=== PATIENT | male | born 1995 | race Caucasian/White ===

== ENCOUNTER 2019-08-02 12:06 | Emergency (ER) | payer SELFPAY ==
[~2019-08-02] VITALS: Ht 188 cm; Wt 147.4 kg
[~2019-08-02 12:06] MED LIST: IBUPROFEN200 MG PO; IBUPROFEN800 MG PO
[2019-08-02] MEDS ORDERED: KEPPRA750 MG PO (13:58)
== END 2019-08-02 15:26 | disposition home or self-care (01) ==
LOC: ED 12:06
DX: R56.9 Unspecified convulsions (principal); Z87.891 Personal history of nicotine dependence
CPT/HCPCS: 70450; 80053; 85025; 96361; 96374; 96375; 99284-25; G0480; J1200; J1953; J2405; J2765; J7030

== ENCOUNTER 2021-02-13 08:56 | Emergency (ER) | payer OTHER ==
[~2021-02-13] VITALS: Ht 188 cm; Wt 142.9 kg
[~2021-02-13 08:56] MED LIST changes: +KEPPRA750 MG PO
[2021-02-13] MEDS ORDERED: DILANTIN100 MG PO (11:38)
== END 2021-02-13 11:51 | disposition home or self-care (01) ==
LOC: ED 08:56
DX: R56.9 Unspecified convulsions (principal); Z87.891 Personal history of nicotine dependence
CPT/HCPCS: 96365; 96375; 99284-25; J2765; J7030; Q2009

== ENCOUNTER 2021-03-09 12:17 | Emergency (ER) | payer OTHER ==
[~2021-03-09] VITALS: Ht 188 cm; Wt 142.9 kg
[~2021-03-09 12:17] MED LIST changes: +DILANTIN100 MG PO
--- OUTSIDE RECORDS SUMMARY | 2021-03-09 12:24 | XMS ---
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 Araceli has no Care Guidelines for this patient. Andrei VISIT COUNT (12 MO.) 2 [facility] H. TOTAL 2 NOTE: Visits indicate total known visits. ED/[facility] VISIT TRACKING (12 MO.) 03/09/2021 12:18 [facility] [place] TYPE: Emergency COMPLAINT: - SEZIURE 02/13/2021 08:57 [facility] [place] TYPE: Emergency COMPLAINT: - SEIZURE DIAGNOSES: - Unspecified convulsions - Personal history of nicotine dependence INPATIENT VISIT TRACKING (12 MO.) No inpatient visits to display in this time frame [email or web address]
[2021-03-09] MEDS ORDERED: PHENYTOIN SODI100 MG PO (14:10)
== END 2021-03-09 14:56 | disposition home or self-care (01) ==
LOC: ED 12:17
DX: G40.909 Epilepsy, unspecified, not intractable, without status epilepticus (principal); Z87.891 Personal history of nicotine dependence; Z79.899 Other long term (current) drug therapy
CPT/HCPCS: 80048; 80185; 85025; 96365; 96375; 99284-25; J1790; J2405; J7030; Q2009

== ENCOUNTER 2021-12-15 23:31 | Emergency (ER) | payer OTHER ==
[~2021-12-15] VITALS: Ht 188 cm; Wt 148.0 kg
[~2021-12-15 23:31] MED LIST changes: +PHENYTOIN SODI100 MG PO
--- OUTSIDE RECORDS SUMMARY | 2021-12-15 23:34 | XMS ---
PreManage Notification: ESHA DE JESUS Security Coroner Technician Events No recent Security Events currently on file CRITERIA MET - [facility] - Has Care Guidelines - [facility] - 2 Visits in 30 Days CARE PROVIDERS KEN CABRERA [facility] 03/10/2021-Current PHONE: Unknown Araceli has no Care Guidelines for this patient. Care History Medical/Surgical 03/10/2021 [facility] - Patient is currently established with [facility]. If patient is seen in the ED during business hours. Please contact CHWs at [facility]. Care Recommendation: If this patient has had 5 or more Emergency Department visits in the last 12 months.\T\nbsp;Patient will require education on the scope and purpose of the ED as an acute care provider not a Primary Care Provider and should not be utilized for chronic conditions.\T\nbsp; These are guidelines and the provider should exercise clinical judgment when providing care. E.D. VISIT COUNT (12 MO.) 1 [facility] 3 [facility]. TOTAL 4 NOTE: Visits indicate total known visits. ED/UCC VISIT TRACKING (12 MO.) 12/15/2021 23:32 [facility] [place] TYPE: Emergency COMPLAINT: - DENTAL PAIN 12/09/2021 17:12 [facility] [place] TYPE: Emergency COMPLAINT: - SEIZURE DIAGNOSES: - SEIZURE 03/09/2021 12:18 [facility] [place] TYPE: Emergency COMPLAINT: - SEZIURE DIAGNOSES: - Unspecified convulsions - Personal history of nicotine dependence - Other shelter (current) drug therapy - Epilepsy, unspecified, not intractable, without status epilepticus 02/13/2021 08:57 [facility] [place] TYPE: Emergency COMPLAINT: - SEIZURE DIAGNOSES: - Unspecified convulsions - Personal history of nicotine dependence INPATIENT VISIT TRACKING (12 MO.) No inpatient visits to display in this time frame [email or web address]
[2021-12-16] MEDS ORDERED: HYDROCODON-ACE1 EA10 PO (00:06)
[2021-12-16] MEDS ORDERED: AMOXICILLIN500 MG PO (00:06)
== END 2021-12-16 00:16 | disposition home or self-care (01) ==
LOC: ED 23:31
DX: K04.7 Periapical abscess without sinus (principal); Z87.891 Personal history of nicotine dependence
CPT/HCPCS: A9270

== ENCOUNTER 2022-04-12 12:11 | Emergency (ER) | payer OTHER ==
[~2022-04-12] VITALS: Ht 188 cm; Wt 141.2 kg
[~2022-04-12 12:11] MED LIST changes: +AMOXICILLIN500 MG PO; +HYDROCODON-ACE1 EA10 PO
--- OUTSIDE RECORDS SUMMARY | 2022-04-12 12:13 | XMS ---
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 Care History Medical/Surgical 03/10/2021 [facility] - [facility] [...] care. E.D. VISIT COUNT (12 MO.) [address] [facility] [address] [facility] [address] [facility] TOTAL 3 NOTE: Visits indicate total known visits. ED/UCC VISIT TRACKING (12 MO.) 04/12/2022 12:12 [facility] [place] TYPE: Emergency COMPLAINT: - SEIZURE 12/15/2021 23:32 [facility] [place] [facility] [place] TYPE: Emergency COMPLAINT: - DENTAL PAIN DIAGNOSES: - Periapical abscess without sinus - Other specified disorders of teeth and supporting structures - Personal history of nicotine dependence 12/09/2021 17:12 [facility] [place] TYPE: Emergency COMPLAINT: - SEIZURE DIAGNOSES: - SEIZURE INPATIENT VISIT TRACKING (12 MO.) No inpatient visits to display in this time frame [email or web address]
[2022-04-12] MEDS ORDERED: PHENYTOIN SODI300 MG PO (12:38)
[2022-04-12] MEDS ORDERED: KEPPRA750 MG PO (16:47)
--- NOTE | 2022-04-13 21:41 | EKG ---
[facility] [address] [facility] [place] [address] Signed Normal sinus rhythm Normal ECG No previous ECGs available Confirmed by Jose Dniero MD () on 04/13/2022 9:41:32 PM Electronically Signed By: JOSE DINERO MD 04/13/222140 PATIENT NAME: ESHA DE JESUS [place] Electrocardiogram DATE OF : [birth year] PHYSICIAN: JOSE DINERO MD REPORT #: [id number] REPORT IS CONFIDENTIAL AND NOT TO BE RELEASED WITHOUT AUTHORIZATION
== END 2022-04-12 17:02 | disposition home or self-care (01) ==
LOC: ED 12:11
DX: G40.909 Epilepsy, unspecified, not intractable, without status epilepticus (principal); Z87.891 Personal history of nicotine dependence; Z79.899 Other long term (current) drug therapy
CPT/HCPCS: 36415; 70450; 71045; 80053; 80185; 85025; 93005; 93010; 96374; 99285-25; J1953

== ENCOUNTER 2022-05-07 19:30 | Emergency (ER) | payer OTHER ==
[~2022-05-07] VITALS: Ht 188 cm; Wt 141.2 kg
[~2022-05-07 19:30] MED LIST changes: +PHENYTOIN SODI300 MG PO
--- OUTSIDE RECORDS SUMMARY | 2022-05-07 19:32 | XMS ---
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 PHONE: [phone] KEN CABRERA Family Medicine 03/10/2021-Current PHONE: [phone] Araceli has no Care Guidelines for this patient. Care History Medical/Surgical 03/10/2021 [facility] - Patient is currently established with [facility]. If patient is seen in the ED during business hours. Please contact CHWs at [facility]. Care Recommendation: If this patient has had [...] care. E.D. VISIT COUNT (12 MO.) 1 [facility] [address] [facility] [address] [facility] TOTAL 4 NOTE: Visits indicate total known visits. ED/UCC VISIT TRACKING (12 MO.) 05/07/2022 19:30 [facility] [place] TYPE: Emergency COMPLAINT: - SEIZURE 04/12/2022 12:12 [facility] [place] TYPE: Emergency COMPLAINT: - SEIZURE DIAGNOSES: - Epilepsy, unspecified, not intractable, without status epilepticus - Other half-way (current) drug therapy - Personal history of nicotine dependence 12/15/2021 23:32 [facility] [place] TYPE: Emergency COMPLAINT: - DENTAL PAIN DIAGNOSES: - Personal history of nicotine dependence - Periapical abscess without sinus - Other specified disorders of teeth and supporting structures 12/09/2021 17:12 [facility] [place] TYPE: Emergency COMPLAINT: - SEIZURE DIAGNOSES: - SEIZURE INPATIENT VISIT TRACKING (12 MO.) No inpatient visits to display in this time frame [email or web address]
--- NOTE | 2022-05-11 18:55 | EKG ---
[facility] [address] [facility] [place] [address] Signed Normal sinus rhythm Nonspecific intraventricular conduction delay Borderline ECG When compared with ECG of 12-APR-2022 12:28, No significant change was found Confirmed by Jose Dinero MD () on 05/11/2022 6:55:09 PM Electronically Signed By: JOSE DINERO MD 05/11/22 1855 PATIENT NAME: ESHA DE JESUS [place] Electrocardiogram DATE OF : [birth year] PHYSICIAN: JOSE DINERO MD REPORT #: [id number] REPORT IS CONFIDENTIAL AND NOT TO BE RELEASED WITHOUT AUTHORIZATION
== END 2022-05-07 21:32 | disposition home or self-care (01) ==
LOC: ED 19:30
DX: G40.909 Epilepsy, unspecified, not intractable, without status epilepticus (principal); Z87.891 Personal history of nicotine dependence; Z79.899 Other long term (current) drug therapy
CPT/HCPCS: 36415; 80053; 81001; 85025; 93005; 93010; 96374; 96375; 99284-25; J1953; J2405; J7121

== ENCOUNTER 2022-06-04 15:53 | Emergency (ER) | payer OTHER ==
--- NOTE | ~2022-06-04 | EKG ---
[facility] [address] [facility] [place], [place] [address] Draft EKG completed, results pending confirmation PATIENT NAME: LIZAESHA [place] Electrocardiogram DATE OF : [birth year] PHYSICIAN: PRELIMINARY REPORT #: [id number] REPORT IS CONFIDENTIAL AND NOT TO BE RELEASED WITHOUT AUTHORIZATION
--- OUTSIDE RECORDS SUMMARY | 2022-06-04 15:56 | XMS ---
PreManage Notification: ESHA RUBI Security Curriculum Manager Events No recent Security Events currently on file CRITERIA MET - [facility] - 2 Visits in 30 Days CARE PROVIDERS There are no care providers on record at this time. Araceli has no Care Guidelines for this patient. Andrei VISIT COUNT (12 MO.) 2 [facility] [place] H. TOTAL 2 NOTE: Visits indicate total known visits. ED/[facility] VISIT TRACKING (12 MO.) 06[facility]22 15[facility] [place] [facility] COMPLAINT: - SEIZURE 05/07/2022 19:26 [facility] [place] TYPE: Emergency COMPLAINT: - SEIZURES INPATIENT VISIT TRACKING (12 MO.) No inpatient visits to display in this time frame [email or web address]
[2022-06-04 17:11] VITALS: BP 125/82
[2022-06-04] MEDS ORDERED: KEPPRA1000 MG PO (17:11)
== END 2022-06-04 17:10 | disposition home or self-care (01) ==
LOC: ED 15:53
DX: G40.909 Epilepsy, unspecified, not intractable, without status epilepticus (principal); Z79.899 Other long term (current) drug therapy
CPT/HCPCS: 36415; 80053; 81001; 83735; 85025; 93005; 93010; 99284-25; G0480

== ENCOUNTER 2022-09-02 20:23 | Emergency (ER) | payer OTHER ==
[~2022-09-02] VITALS: Ht 188 cm; Wt 141.1 kg
--- OUTSIDE RECORDS SUMMARY | ~2022-09-02 | XMS | Continuity of Care Document ---
Demographics + + + | Address | [address] | | | [place] [address] | + + + | Preferred Language | Unknown | + + + | Marital Status | | + + + | Caodaism Affiliation | Unknown | + + + | Race | White | + + + | Ethnic Group | Unknown | + + + Author + + + | Author | [facility] | + + + | Organization | [facility] | + + + | Address | [address] | | | [place] [address] | + + + | Phone | | + + + Care Team Providers + + + + | Care Individual Small Group Instructor Name | Role | Phone | + [...] (no date) | NO ALLERGY | [facility] | (no reaction) | (no severity) | | | INFORMATION ON | Medical Center | | | | | FILE | Hospital | | | + + + + + + | (no date) | NO KNOWN | [facility] | (no reaction) | (no severity) | [...] Cardiopulmonary Services | | | tablet | [facility] | + + + + | 2022-05-27 00:00 | phenytoin 50 mg chewable | [facility] | | | tablet | [facility] | + + + + | 2016-06-04 00:00 | IBUPROFEN | [facility] | + + + + | 2016-06-04 00:00 | IBUPROFEN | [facility] | + + + + | 2019-08-02 00:00 | LEVETIRACETAM | [facility] | + + + + | 2019-08-02 00:00 | LEVETIRACETAM | [facility] | + + + + | 2022-04-12 00:00 | LEVETIRACETAM | [facility] | + + + + | 2022-04-12 00:00 | LEVETIRACETAM | [facility] | + + + + | 2021-12-16 00:00 | AMOXICILLIN | [facility] | + + + + | 2021-12-16 00:00 | IBUPROFEN | [facility] | + + + + | 2022-04-12 00:00 | IBUPROFEN | [facility] | + + + + | 2022-05-07 00:00 | IBUPROFEN | [facility] | + + + + | 2022-06-14 00:00 | IBUPROFEN | [facility] | + + + + | 2022-05-27 00:00 | levetiracetam 250 mg oral | Cardiopulmonary Services | | | tablet | at [facility] | + + + + | 2022-05-27 00:00 | levetiracetam 250 mg oral | [facility] | | | tablet | [facility] | + + + + | 2022-05-08 00:00 | levetiracetam 750 mg oral | [facility] | | | tablet | [facility] | + + + + | 2022-06-09 00:00 | levetiracetam 750 mg oral | Cardiopulmonary Services | | | tablet | at [facility] | + + + + | 2022-06-14 00:00 | LEVETIRACETAM | [facility] | + + + + | 2021-03-09 00:00 | PHENYTOIN SODIUM EXTENDED | [facility] | + + + + | 2022-05-27 00:00 | phenytoin sodium 100 mg | Cardiopulmonary Services | | | extended release oral | [facility] | | | capsule | | + + + + | 2022-05-27 00:00 | phenytoin sodium 100 mg | [facility] | | | extended release oral | [facility] | | | capsule | | + + + + | 2021-02-13 00:00 | PHENYTOIN SODIUM | [facility] | + + + + | 2021-02-13 00:00 | PHENYTOIN SODIUM | [facility] | + + + + | 2022-05-11 00:00 | phenytoin sodium 200 mg | [facility] | | | extended release oral | [facility] | | | capsule | | + + + + | 2022-04-12 00:00 | PHENYTOIN SODIUM EXTENDED | [facility] | + + + + | 2022-05-07 00:00 | PHENYTOIN SODIUM EXTENDED | [facility] | + + + + | 2022-06-14 00:00 | PHENYTOIN SODIUM EXTENDED | [facility] | + + + + | 2021-12-16 00:00 | HYDROCODONE | [facility] | | | BIT/ACETAMINOPHEN | | + + + + Problems + + + + | date | description | facility | + + + + | 2016-06-04 00:00 | Upper respiratory tract | [facility] | | | infection | | + + + + | 2016-06-04 00:00 | Upper respiratory tract | [facility] | | | infection | | + + + + | 2016-06-04 00:00 | Headache | [facility] | + + + + | 2016-06-04 00:00 | Headache | [facility] | + + + + | 2021-02-13 00:00 | Seizure | [facility] | + + + + | 2021-02-13 00:00 | Seizure | [facility] | + + + + | 2021-03-09 00:00 | Seizure disorder | [facility] | + + + + | 2021-03-09 00:00 | Seizure disorder | [facility] | + + + + | 2021-12-16 00:00 | Dental abscess | [facility] | + + + + | 2021-12-16 00:00 | Dental abscess | [facility] | + + + + | 2022-05-27 10:12:35 | 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, | [facility]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, 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 | | + + + + | 2022-06-04 00:00 | Recurrent seizures | [facility] | + + + + | 2022-07-06 08:26:40 | 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, | [facility]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, 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 | | + + + + | 2022-07-06 15:54:41 | 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, | [facility]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, 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 | | + + + + | 2022-07-06 15:54:41 | Epilepsy, unspecified, | [facility] | | | intractable, without status | [facility] | | | epilepticus | | + + + + Procedures + + + + | date | description | facility | + + + + | 2022-07-06 00:00 | TO HR COORDINATOR | Cardiopulmonary Services | | | | at [facility] | + + + + Results/Labs [...] (missing) | (missing) | | (unavailable | :07 | [facility] | | | | | [...] mg/dL | (missing) | | (unavailable | :08 | [facility] | | | | + + + +-------+---------+ + + + | Result panel 18 | + + + + + +------+---------+ + | | 2022-04-12 | [facility] | 13 | mg/dL | (missing) | | (unavailable | 32:08 | [facility] | | | | | [...] 38 | + + + + + +-------+---------+ + | | 2022-05-07 | [facility] | 130 | mg/dL | (missing) | | (unavailable | 19:35:07 | [facility] | | | | + + + +-------+---------+ + + + | Result panel 39 | + + + + + +-----+---------+ + | | 2022-05-07 | [facility] | 9 | mg/dL | (missing) | | (unavailable | 19:35:07 | [facility] | | | | + + + +-----+---------+ + + + | Result panel 40 | + + + + + +--------+---------+ + | | 2022-05-07 | [facility] | 1.10 | mg/dL | (missing) | | (unavailable | 19:35:07 | [facility] | | | | + + + +--------+---------+ + + + | Result panel 41 | + + + + + +------+ [...] 43 | + + + + + +-------+ + + | | 2022-05-07 | [facility] | 141 | (missing) | (missing) | | (unavailable | 19:35:07 | [facility] | | | | + + + +-------+ + + + + | Result panel 44 | + + + + + +-------+ + + | | 2022-05-07 | [facility] | 3.7 | (missing) | (missing) | | (unavailable | 19:35:07 | [facility] | | | | + + + +-------+ + + + + | Result panel 45 | + + + + + +-------+ + + | | 2022-05-07 | [facility] | 104 | (missing) | (missing) | | (unavailable | 19:35:07 | [facility] | | | | + + + +-------+ + + + + | Result panel 46 | + + + + + +------+ [...] 48 | + + + + + +-------+---------+ + | | 2022-05-07 | [facility] | 8.8 | mg/dL | (missing) | | (unavailable | 19:35:07 | [facility] | | | | + + + +-------+---------+ + + + | Result panel 49 [...] 52 | + + + + + +--------+ + + | | 2022-05-07 | [facility] | 1.34 | (missing) | (missing) | | (unavailable | 19:35:07 | [facility] | | | | + + + +--------+ + + + + | Result panel 53 | + + + + + +-------+ + + | | 2022-05-07 | [facility] | 0.4 | (missing) | (missing) | | (unavailable | 19:35:07 | [facility] | | | | + + + +-------+ + + + + | Result panel 54 | + + + + + +------+ + + | | 2022-05-07 | [facility] | 30 | (missing) | (missing) | | (unavailable | 19:35:07 | [facility] | | | | + + + +------+ + + + + | Result panel 55 [...] 56 | + + + + + +------+ [...] 58 | + + + + + +--------+ + + | | 2022-05-07 | [facility] | 4.86 | (missing) | (missing) | | (unavailable | 19:35:07 | [facility] | | | | + + + +--------+ + + + + | Result panel 59 | + + + + + +--------+ + + | | 2022-05-07 | [facility] | 14.6 | (missing) | (missing) | | (unavailable | 19:35:07 | [facility] | | | | + + + +--------+ + + + + | Result panel 60 | + + + + + +--------+ [...] 62 | + + + + + +--------+ + + | | 2022-05-07 | [facility] | 30.1 | (missing) | (missing) | | (unavailable | 19:35:07 | [facility] | | | | + + + +--------+ + + + + | Result panel 63 | + + + + + +--------+ + + | | 2022-05-07 | [facility] | 33.8 | (missing) | (missing) | | (unavailable | 19:35:07 | [facility] | | | | + + + +--------+ + + + + | Result panel 64 | + + + + + +--------+ [...] 67 | + + + + + +--------+ + + | | 2022-05-07 | [facility] | 30.0 | (missing) | (missing) | | (unavailable | 19:35:07 | [facility] | | | | + + + +--------+ + + + + | Result panel 68 | + + + + + +-------+ + + | | 2022-05-07 | [facility] | 8.3 | (missing) | (missing) | | (unavailable | 19:35:07 | [facility] | | | | + + + +-------+ + + + + | Result panel 69 | + + + + + +-------+ + + | | 2022-05-07 | [facility] | 0.4 | (missing) | (missing) | | (unavailable | 19:35:07 | [facility] | | | | + + + +-------+ + + + + | Result panel 70 | + + + + + +-------+ + + | | 2022-05-07 | [facility] | 0.3 | (missing) | (missing) | | (unavailable | 19:35:07 | [facility] | | | | + + + +-------+ + + + + | Result panel 71 | + + + + + +-----+ + + | | 2022-05-07 | [facility] | 0 | (missing) | (missing) | | (unavailable | 20:35:07 | [facility] | | | | + + + +-----+ + + + + | Result panel 72 | + + + + + + + + + | | 2022-05-07 | [facility] | NONE SEEN | (missing) | (missing) | | (unavailable | 20:35:07 | [facility] | | | | + + + + + + + + + | Result panel 73 | + + + + + +--------+ [...] 75 | + + + + + +------+ [...] 78 | + + + + + + + + + | | 2022-05-07 | [facility] | NEGATIVE | (missing) | (missing) | | (unavailable | 20:35:07 | [facility] | | | | + + + + + + + + + | Result panel 79 | + + + + + + [...] 83 | + + + + + + + + + | | 2022-05-07 | [facility] | NEGATIVE | (missing) | (missing) | | (unavailable | 20:35:07 | [facility] | | | | + + + + + + + + + | Result panel 84 | + + + + + + + + + | | 2022-05-07 | [facility] | NEGATIVE | (missing) | (missing) | | (unavailable | 20:35:07 | [facility] | | | | + + + + + + + + + | Result panel 85 | + + + + + + [...] 87 | + + + + + + [...] 89 | + + + + + + [...] 91 | + + + + + +---------+ [...] 97 | + + + + + +-------+ + + | | 2022-05-07 | [facility] | 6.0 | (missing) | (missing) | | (unavailable | 20:35:07 | [facility] | | | | + + + +-------+ + + + + | Result panel 98 | + + + + + +------+ [...] 102 | + + + + + +-------+ + + | | 2022-05-07 | [facility] | 0-1 | (missing) | (missing) | | (unavailable | 20:35:07 | [facility] | | | | + + + +-------+ + + + + | Result panel 103 | + + + + + +-------+ [...] 106 | + + + + + +---------+ [...] 112 | + + + + + +-------+ + + | | 2022-06-04 | [facility] | 6.0 | (missing) | (missing) | | (unavailable | 16:30:07 | [facility] | | | | + + + +-------+ + + + + | Result panel 113 | + + + + + +------+ + + | | 2022-06-04 | [facility] | 30 | (missing) | (missing) | | (unavailable | 16:30:07 | [facility] | | | | + + + +------+ + + + + | Result panel 114 | + + + + + + [...] 117 | + + + + + +-------+ + + | | 2022-06-04 | [facility] | 0-1 | (missing) | (missing) | | (unavailable | 16:30:07 | [facility] | | | | + + + +-------+ + + + + | Result panel 118 | + + + + + +-------+ + + | | 2022-06-04 | [facility] | 0-1 | (missing) | (missing) | | (unavailable | 16:30:07 | [facility] | | | | + + + +-------+ + + + + | Result panel 119 | + + + + + +-----+ + + | | 2022-06-04 | [facility] | 0 | (missing) | (missing) | | (unavailable | 16:30:07 | [facility] | | | | + + + +-----+ + + + + | Result panel 120 | + + + + + + + + + | | 2022-06-04 | [facility] | NONE SEEN | (missing) | (missing) | | (unavailable | 16:30:07 | [facility] | | | | + + + + + + + + + | Result panel 121 | + + + + + +--------+ [...] 123 | + + + + + +------+ [...] 125 | + + + + + + + + + | | 2022-06-04 | [facility] | POSITIVE | (missing) | (missing) | | (unavailable | 16:30:07 | [facility] | | | | + + + + + + + + + | Result panel 126 | + + + + + + + + + | | 2022-06-04 | [facility] | NEGATIVE | (missing) | (missing) | | (unavailable | 16:30:07 | [facility] | | | | + + + + + + + + + | Result panel 127 | + + + + + + [...] 129 | + + + + + + [...] 131 | + + + + + + [...] 141 | + + + + + +-------+ + + | | 2022-06-14 | [facility] | 6.7 | (missing) | (missing) | | (unavailable | 11:50:07 | [facility] | | | | + + + +-------+ + + + + | Result panel 142 | + + + + + +-------+ + + | | 2022-06-14 | [facility] | 0.6 | (missing) | (missing) | | (unavailable | 11:50:07 | [facility] | | | | + + + +-------+ + + + + | Result panel 143 | + + + + + +-------+ + + | | 2022-06-14 | [facility] | 0.2 | (missing) | (missing) | | (unavailable | 11:50:07 | [facility] | | | | + + + +-------+ + + + + | Result panel 144 | + + + + + +-------+---------+ + | | 2022-06-14 | [facility] | 106 | mg/dL | (missing) | | (unavailable | 11:50:07 | [facility] | | | | + + + +-------+---------+ + + + | Result panel 145 | + + + + + +------+---------+ + | | 2022-06-14 | [facility] | 13 | mg/dL | (missing) | | (unavailable | 11:50:07 | [facility] | | | | + + + +------+---------+ + + + | Result panel 146 | + + + + + +--------+---------+ + | | 2022-06-14 | [facility] | 0.90 | mg/dL | (missing) | | (unavailable | 11:50:07 | [facility] | | | | + + + +--------+---------+ + + + | Result panel 147 | + + + + + +-------+ + + | | 2022-06-14 | [facility] | 122 | (missing) | (missing) | | (unavailable | 11:50:07 | [facility] | | | | + + + +-------+ + + + + | Result panel 148 | + + + + + +-------+ + + | | 2022-06-14 | [facility] | 6.2 | (missing) | (missing) | | (unavailable | 11:50:07 | [facility] | | | | + + + +-------+ + + + + | Result panel 149 | + + + + + +---------+ [...] 152 | + + + + + +-------+ + + | | 2022-06-14 | [facility] | 103 | (missing) | (missing) | | (unavailable | 11:50:07 | [facility] | | | | + + + +-------+ + + + + | Result panel 153 | + + + + + +------+ + + | | 2022-06-14 | [facility] | 24 | (missing) | (missing) | | (unavailable | 11:50:07 | [facility] | | | | + + + +------+ + + + + | Result panel 154 | + + + + + +--------+ + + | | 2022-06-14 | [facility] | 16.1 | (missing) | (missing) | | (unavailable | 11:50:07 | [facility] | | | | + + + +--------+ + + + + | Result panel 155 | + + + + + +-------+---------+ + | | 2022-06-14 | [facility] | 9.1 | mg/dL | (missing) | | (unavailable | 11:50:07 | [facility] | | | | + + + +-------+---------+ + + + | Result panel 156 | + + + + + +-------+---------+ + | | 2022-06-14 | [facility] | 2.1 | mg/dL | (missing) | | (unavailable | 11:50:07 | [facility] | | | | + + + +-------+---------+ + + + | Result panel 157 [...] 159 | + + + + + +--------+ + + | | 2022-06-14 | [facility] | 5.34 | (missing) | (missing) | | (unavailable | 11:50:07 | [facility] | | | | + + + +--------+ + + + + | Result panel 160 | + + + + + +-------+ [...] 162 | + + + + + +-------+ + + | | 2022-06-14 | [facility] | 0.4 | (missing) | (missing) | | (unavailable | 11:50:07 | [facility] | | | | + + + +-------+ + + + + | Result panel 163 | + + + + + +------+ + + | | 2022-06-14 | [facility] | 24 | (missing) | (missing) | | (unavailable | 11:50:07 | [facility] | | | | + + + +------+ + + + + | Result panel 164 | + + + + + +------+ + + | | 2022-06-14 | [facility] | 72 | (missing) | (missing) | | (unavailable | 11:50:07 | [facility] | | | | + + + +------+ + + + + | Result panel 165 | + + + + + +------+ [...] 167 | + + + + + + + + + | | 2022-06-14 | [facility] | 06/13/2022 | (missing) | (missing) | | (unavailable | 11:50:07 | [facility] | | | | ) | | [facility] | | | | + + + + + + + + + | Result panel 168 | + + + + + +--------+ + + | | 2022-06-14 | [facility] | 16.0 | (missing) | (missing) | | (unavailable | 11:50:07 | [facility] | | | | + + + +--------+ + + + + | Result panel 169 | + + + + + +--------+ + + | | 2022-06-14 | [facility] | 47.4 | (missing) | (missing) | | (unavailable | 11:50:07 [facility] | | | | + + + +--------+ + + + + | Result panel 170 | + + + + + +--------+ + + | | 2022-06-14 | [facility] | 88.6 | (missing) | (missing) | | (unavailable | 11:50:07 | [facility] | | | | + + + +--------+ + + + + | Result panel 171 | + + + + + +--------+ + + | | 2022-06-14 | [facility] | 29.9 | (missing) | (missing) | | (unavailable | 11:50:07 | [facility] | | | | + + + +--------+ + + + + | Result panel 172 | + + + + + +--------+ + + | | 2022-06-14 | [facility] | 33.7 | (missing) | (missing) | | (unavailable | 11:50:07 | [facility] | | | | + + + +--------+ + + + + | Result panel 173 | + + + + + +--------+ [...] | | | | | | at [facility] | | | | | | | Hospital | | | | + + + + + + + Social History + + + + | date | description | facility | + + + + | 2014-02-21 00:00 | Current smoker | Cardiopulmonary Services | | | | at [facility] | + + + + | 2014-02-21 00:00 | Current smoker | [facility] | | | | [facility] | + + + + | 2022-05-27 00:00 | Ex-smoker | Cardiopulmonary Services | | | | at [facility] | + + + + | 2022-05-27 00:00 | Ex-smoker | [facility] | | | | [facility] [...]
--- OUTSIDE RECORDS SUMMARY | ~2022-09-02 | XMS | Continuity of Care Document ---
Demographics + + + | Address | [address] | | | [place] [address] | + + + | Preferred Language | Unknown | + + + | Marital Status | | + + + | Mandaeism Affiliation | Unknown | + + + | Race | White | + + + | Ethnic Group | Unknown | + + + Author + + + | Author | [facility] | + + + | Organization | [facility] | + + + | Address | [address] | | | [place] [address] | + + + | Phone | | + + + Care Team Providers + + + + | Care Internal Medicine Hospitalist Name | Role | Phone | + [...] | (no date) | NO ALLERGY | [facility] | (no reaction) | (no severity) | | | INFORMATION ON | Medical Center | | | | | FILE | Hospital | | | + + + + + + | (no date) | NO KNOWN | [facility] | (no reaction) | (no severity) [...] Cardiopulmonary Services | | | tablet | [facility] | + + + + | 2022-05-27 00:00 | phenytoin 50 mg chewable | [facility] | | | tablet | [facility] | + + + + | 2016-06-04 00:00 | IBUPROFEN | [facility] | + + + + | 2016-06-04 00:00 | IBUPROFEN | [facility] | + + + + | 2019-08-02 00:00 | LEVETIRACETAM | [facility] | + + + + | 2019-08-02 00:00 | LEVETIRACETAM | [facility] | + + + + | 2022-04-12 00:00 | LEVETIRACETAM | [facility] | + + + + | 2022-04-12 00:00 | LEVETIRACETAM | [facility] | + + + + | 2021-12-16 00:00 | AMOXICILLIN | [facility] | + + + + | 2021-12-16 00:00 | IBUPROFEN | [facility] | + + + + | 2022-04-12 00:00 | IBUPROFEN | [facility] | + + + + | 2022-05-07 00:00 | IBUPROFEN | [facility] | + + + + | 2022-06-14 00:00 | IBUPROFEN | [facility] | + + + + | 2022-05-27 00:00 | levetiracetam 250 mg oral | Cardiopulmonary Services | | | tablet | at [facility] | + + + + | 2022-05-27 00:00 | levetiracetam 250 mg oral | [facility] | | | tablet | [facility] | + + + + | 2022-05-08 00:00 | levetiracetam 750 mg oral | [facility] | | | tablet | [facility] | + + + + | 2022-06-09 00:00 | levetiracetam 750 mg oral | Cardiopulmonary Services | | | tablet | at [facility] | + + + + | 2022-06-14 00:00 | LEVETIRACETAM | [facility] | + + + + | 2021-03-09 00:00 | PHENYTOIN SODIUM EXTENDED | [facility] | + + + + | 2022-05-27 00:00 | phenytoin sodium 100 mg | Cardiopulmonary Services | | | extended release oral | [facility] | | | capsule | | + + + + | 2022-05-27 00:00 | phenytoin sodium 100 mg | [facility] | | | extended release oral | [facility] | | | capsule | | + + + + | 2021-02-13 00:00 | PHENYTOIN SODIUM | [facility] | + + + + | 2021-02-13 00:00 | PHENYTOIN SODIUM | [facility] | + + + + | 2022-05-11 00:00 | phenytoin sodium 200 mg | [facility] | | | extended release oral | [facility] | | | capsule | | + + + + | 2022-04-12 00:00 | PHENYTOIN SODIUM EXTENDED | [facility] | + + + + | 2022-05-07 00:00 | PHENYTOIN SODIUM EXTENDED | [facility] | + + + + | 2022-06-14 00:00 | PHENYTOIN SODIUM EXTENDED | [facility] | + + + + | 2021-12-16 00:00 | HYDROCODONE | [facility] | | | BIT/ACETAMINOPHEN | | + + + + Problems + + + + | date | description | facility | + + + + | 2016-06-04 00:00 | Upper respiratory tract | [facility] | | | infection | | + + + + | 2016-06-04 00:00 | Upper respiratory tract | [facility] | | | infection | | + + + + | 2016-06-04 00:00 | Headache | [facility] | + + + + | 2016-06-04 00:00 | Headache | [facility] | + + + + | 2021-02-13 00:00 | Seizure | [facility] | + + + + | 2021-02-13 00:00 | Seizure | [facility] | + + + + | 2021-03-09 00:00 | Seizure disorder | [facility] | + + + + | 2021-03-09 00:00 | Seizure disorder | [facility] | + + + + | 2021-12-16 00:00 | Dental abscess | [facility] | + + + + | 2021-12-16 00:00 | Dental abscess | [facility] | + + + + | 2022-05-27 10:12:35 | 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, | [facility]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, 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 | | + + + + | 2022-06-04 00:00 | Recurrent seizures | [facility] | + + + + | 2022-07-06 08:26:40 | 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, | [facility]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, 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 | | + + + + | 2022-07-06 15:54:41 | 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, | [facility]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, 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 | | + + + + | 2022-07-06 15:54:41 | Epilepsy, unspecified, | [facility] | | | intractable, without status | [facility] | | | epilepticus | | + + + + Procedures + + + + | date | description | facility | + + + + | 2022-07-06 00:00 | TO ZINC ETCHER | Cardiopulmonary Services | | | | [...] (missing) | | (unavailable | 16:30:07 | Prav[facility] | | | | | [...] | | | | | | at [facility] | | | | | | | Hospital | | | | + + + + + + + Social History + + + + | date | description | facility | + + + + | 2014-02-21 00:00 | Current smoker | Cardiopulmonary Services | | | | at [facility] | + + + + | 2014-02-21 00:00 | Current smoker | [facility] | | | | [facility] | + + + + | 2022-05-27 00:00 | Ex-smoker | Cardiopulmonary Services | | | | at [facility] | + + + + | 2022-05-27 00:00 | Ex-smoker | [facility] | | | | [facility] [...]
[~2022-09-02 20:23] MED LIST changes: +KEPPRA1000 MG PO
--- OUTSIDE RECORDS SUMMARY | 2022-09-02 20:26 | XMS ---
PreManage Notification: ESHA DE JESUS Security Steam Conditioner Operator Events No recent Security Events currently on file CRITERIA MET - 6 ED Visits in [address] - [facility] - Has Care Guidelines CARE PROVIDERS -[place]- Dentist: A P Manager [facility] PHONE: [phone] KEN CABRERA Family Medicine 03/10/2021-Current PHONE: [phone] Araceli has no Care Guidelines for this patient. Care History Medical/Surgical 03/10/2021 [facility] - Patient is currently established with [facility]. If patient is seen in the ED during business hours. Please contact CHWs at [facility]. Care Recommendation: If this patient has had [...] care. E.D. VISIT COUNT (12 MO.) 1 [facility] 7 [facility] TOTAL 8 NOTE: Visits indicate total known visits. 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 [place] [facility] COMPLAINT: - SEIZURE DIAGNOSES: - Epilepsy, unspecified, not intractable, without status epilepticus - Other skilled nursing (current) drug therapy - Unspecified convulsions 05/07/2022 19:30 [facility] [place] [facility] COMPLAINT: - SEIZURE DIAGNOSES: - Epilepsy, unspecified, not intractable, without status epilepticus - Other skilled nursing (current) drug therapy - Personal history of nicotine dependence 05/07/2022 19[facility]26 [facility] [place] [facility] COMPLAINT: - SEIZURES 04/12/2022 12:12 [facility] [place] TYPE: Emergency COMPLAINT: - SEIZURE DIAGNOSES: - Epilepsy, unspecified, not intractable, without status epilepticus - Other skilled nursing (current) drug therapy - Personal history of nicotine dependence 12/15/2021 23:32 [facility] [place] TYPE: Emergency COMPLAINT: - DENTAL PAIN DIAGNOSES: - Other specified disorders of teeth and supporting structures - Periapical abscess without sinus - Personal history of nicotine dependence 12/09/2021 17:12 [facility] [place] TYPE: Emergency COMPLAINT: - SEIZURE DIAGNOSES: - SEIZURE INPATIENT VISIT TRACKING (12 MO.) No inpatient visits to display in this time frame [email or web address]
[2022-09-02] MEDS ORDERED: VALTOCO20 MG/0.2 NAS (23:34)
[2022-09-02 23:40] VITALS: BP 121/102
== END 2022-09-02 23:40 | disposition home or self-care (01) ==
LOC: ED 20:23
DX: R56.9 Unspecified convulsions (principal)
CPT/HCPCS: 36415; 71045; 80053; 82553; 83735; 85025; J7030; J7121

== ENCOUNTER 2022-10-08 09:47 | Emergency (ER) | payer OTHER ==
[~2022-10-08] VITALS: Ht 188 cm; Wt 141.2 kg
--- OUTSIDE RECORDS SUMMARY | ~2022-10-08 | XMS | Continuity of Care Document ---
Demographics + + + | Address | [address] | | | [place] [address] | + + + | Preferred Language | Unknown | + + + | Marital Status | | + + + | Mandaen Affiliation | Unknown | + + + | Race | White | + + + | Ethnic Group | Unknown | + + + Author + + + | Author | [facility] | + + + | Organization | [facility] | + + + | Address | [address] | | | [place] [address] | + + + | Phone | | + + + Care Team Providers + + + + | Care Supervisor [employer] [employer] Name | Role | Phone | + + + + Unavailable | Unavailable | + + + + Unavailable | Unavailable | + + + + Unavailable | Unavailable | + + + + Unavailable | Unavailable | + + + + Allergies and Intolerances + + + + + + | date | description | facility | reaction | severity | + + + + + + | (no date) | No Known Drug | [facility] | (no reaction) | (no severity) | | | Allergies | | | | + + + + + + | (no date) | NO ALLERGY | [facility] | (no reaction) | (no severity) | | | INFORMATION ON | [facility] | | | | | FILE | Hospital | | | + + + + + + | (no date) | NO KNOWN | [facility] | (no reaction) | (no severity) | | | ALLERGIES | [facility] Center | | | | | | Hospital | | | + + + + + + Encounters No information. Functional Status No information. Immunizations No information. Medications + + + + | date | description | facility | + + + + | 2022-05-27 00:00 | phenytoin 50 mg chewable | Card[facility] Services | | | tablet | at [facility] | + + + + | 2022-05-27 00:00 | phenytoin 50 mg chewable | [facility] | | | tablet | [facility] | + + + + | 2016-06-04 00:00 | IBUPROFEN | [facility] | + + + + | 2016-06-04 00:00 | IBUPROFEN | [facility] | + + + + | 2022-09-02 00:00 | Diazepam | [facility] | + + + + | 2019-08-02 00:00 | LEVETIRACETAM | [facility] | + + + + | 2019-08-02 00:00 | LEVETIRACETAM | [facility] | + + + + | 2022-04-12 00:00 | LEVETIRACETAM | [facility] | + + + + | 2022-04-12 00:00 | LEVETIRACETAM | [facility] | + + + + | 2021-12-16 00:00 | AMOXICILLIN | [facility] | + + + + | 2021-12-16 00:00 | IBUPROFEN | [facility] | + + + + | 2022-04-12 00:00 | IBUPROFEN | [facility] | + + + + | 2022-05-07 00:00 | IBUPROFEN | [facility] | + + + + | 2022-06-14 00:00 | IBUPROFEN | [facility] | + + + + | 2022-09-03 00:00 | IBUPROFEN | [facility] | + + + + | 2022-05-27 00:00 | levetiracetam 250 mg oral | Cardiopulmonary Services | | | tablet | at [facility] | + + + + | 2022-05-27 00:00 | levetiracetam 250 mg oral | [facility] | | | tablet | [facility] | + + + + | 2022-05-08 00:00 | levetiracetam 750 mg oral | [facility] | | | tablet | [facility] | + + + + | 2022-06-09 00:00 | levetiracetam 750 mg oral | [facility] Services | | | tablet | [facility] | + + + + | 2022-06-14 00:00 | LEVETIRACETAM | [facility] | + + + + | 2022-09-03 00:00 | LEVETIRACETAM | [facility] | + + + + | 2021-03-09 00:00 | PHENYTOIN SODIUM EXTENDED | [facility] | + + + + | 2022-05-27 00:00 | phenytoin sodium 100 mg | Cardiopulmonary Services | | | extended release oral | at [facility] | | | capsule | | + + + + | 2022-05-27 00:00 | phenytoin sodium 100 mg | [facility] | | | extended release oral | [facility] | | | capsule | | + + + + | 2021-02-13 00:00 | PHENYTOIN SODIUM | [facility] | + + + + | 2021-02-13 00:00 | PHENYTOIN SODIUM | [facility] | + + + + | 2022-05-11 00:00 | phenytoin sodium 200 mg | [facility] | | | extended release oral | [facility] | | | capsule | | + + + + | 2022-04-12 00:00 | PHENYTOIN SODIUM EXTENDED | [facility] | + + + + | 2022-05-07 00:00 | PHENYTOIN SODIUM EXTENDED | [facility] | + + + + | 2022-06-14 00:00 | PHENYTOIN SODIUM EXTENDED | [facility] | + + + + | 2022-09-03 00:00 | PHENYTOIN SODIUM EXTENDED | [facility] | + + + + | 2021-12-16 00:00 | HYDROCODONE | [facility] | | | BIT/ACETAMINOPHEN | | + + + + Problems + + + + | date | description | facility | + + + + | 2016-06-04 00:00 | Upper respiratory tract | [facility] | | | infection | | + + + + | 2016-06-04 00:00 | Upper respiratory tract | [facility] | | | infection | | + + + + | 2016-06-04 00:00 | Headache | [facility] | + + + + | 2016-06-04 00:00 | Headache | [facility] | + + + + | 2021-02-13 00:00 | Seizure | [facility] | + + + + | 2021-02-13 00:00 | Seizure | [facility] | + + + + | 2021-03-09 00:00 | Seizure disorder | [facility] | + + + + | 2021-03-09 00:00 | Seizure disorder | [facility] | + + + + | 2021-12-16 00:00 | Dental abscess | [facility] | + + + + | 2021-12-16 00:00 | Dental abscess | [facility] | + + + + | 2022-05-27 10:12:35 | 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, | [facility]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, 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 | | + + + + | 2022-06-04 00:00 | Recurrent seizures | [facility] | + + + + | 2022-07-06 08:26:40 | 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, | [facility]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, 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 | | + + + + | 2022-07-06 15:54:41 | 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, | [facility]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, 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 | | + + + + | 2022-07-06 15:54:41 | Epilepsy, unspecified, | [facility] | | | intractable, without status | [facility] | | | epilepticus | | + + + + | 2022-09-02 20:23 | UNSPECIFIED CONVULSIONS | [facility] | + + + + | 2022-09-16 14:42:38 | 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 | | | | seizures of localized | | | | onset, intractable, 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 | | + + + + | 2022-09-16 14:42:38 | Other 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 terminal operator (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) | [facility] | | | drug therapy | [facility] | + + + + | 2022-09-24 08:00 | SUPERFICIAL FOREIGN BODY | [facility] | | | OF OTHER PART O | | + + + + | 2022-10-08 09:30 | SUPERFICIAL FOREIGN BODY | [facility] | | | OF OTHER PART O | | + + + + Procedures + + + + | date | description | facility | + + + + | 2022-07-06 00:00 | 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 | 29.4 | (missing) | (missing) | | (unavailable | 12:32:07 [facility] | | | | + + + +--------+ + + + + | Result panel 2 | + + + + + +------+ + + | | 2022-04-12 | [facility] | // | (missing) | (missing) | | (unavailable | 12:32:07 [facility] | | | | + + + +------+ + + + + | Result panel 3 | + + + + + +-------+ + + | | 2022-04-12 | [facility] | 8.3 | (missing) | (missing) | | (unavailable | 12:32:08 | [facility] | | | | + + + +-------+ + + + + | Result panel 4 | + + + + + +--------+ + + | | 2022-04-12 | [facility] | 5.36 | (missing) | (missing) | | (unavailable | 12:32:08 | [facility] | | | | + + + +--------+ + + + + | Result panel 5 | + + + + + +--------+ + + | | 2022-04-12 | [facility] | 16.1 | (missing) | (missing) | | (unavailable | 12:32:08 | [facility] | | | | + + + +--------+ + + + + | Result panel 6 | + + + + + +--------+ + + | | 2022-04-12 | [facility] | 47.3 | (missing) | (missing) | | (unavailable | 12:32:08 | [facility] | | | | + + + +--------+ + + + + | Result panel 7 | + + + + + +--------+ + + | | 2022-04-12 | [facility] | 88.3 | (missing) | (missing) | | (unavailable | 12:32:08 | [facility] | | | | + + + +--------+ + + + + | Result panel 8 | + + + + + +--------+ + + | | 2022-04-12 | [facility] | 30.0 | (missing) | (missing) | | (unavailable | 12:32:08 | [facility] | | | | + + + +--------+ + + + + | Result panel 9 | + + + + + +--------+ + + | | 2022-04-12 | [facility] | 34.0 | (missing) | (missing) | | (unavailable | 12:32:08 | [facility] | | | | + + + +--------+ + + + + | Result panel 10 | + + + + + +--------+ + + | | 2022-04-12 | [facility] | 13.4 | (missing) | (missing) | | (unavailable | 12:32:08 [facility] | | | | + + + +--------+ + + + + | Result panel 11 | + + + + + +-------+ + + | | 2022-04-12 | [facility] | 253 | (missing) | (missing) | | (unavailable | 12:32:08 | [facility] | | | | + + + +-------+ + + + + | Result panel 12 | + + + + + +--------+ + + | | 2022-04-12 | [facility] | 84.0 | (missing) | (missing) | | (unavailable | 12:32:08 | [facility] | | | | + + + +--------+ + + + + | Result panel 13 | + + + + + +--------+ + + | | 2022-04-12 | [facility] | 10.9 | (missing) | (missing) | | (unavailable | 12:32:08 | [facility] | | | | + + + +--------+ + + + + | Result panel 14 | + + + + + +-------+ + + | | 2022-04-12 | [facility] | 4.8 | (missing) | (missing) | | (unavailable | 12:32:08 | [facility] | | | | + + + +-------+ + + + + | Result panel 15 | + + + + + +-------+ + + | | 2022-04-12 | [facility] | 0.2 | (missing) | (missing) | | (unavailable | 12:32:08 | [facility] | | | | + + + +-------+ + + + + | Result panel 16 | + + + + + +-------+ + + | | 2022-04-12 | [facility] | 0.1 | (missing) | (missing) | | (unavailable | 12:32:08 | [facility] | | | | + + + +-------+ + + + + | Result panel 17 | + + + + + +-------+---------+ + | | 2022-04-12 | [facility] | 113 | mg/dL | (missing) | | (unavailable | 12:32:08 | [facility] | | | | + + + +-------+---------+ + + + | Result panel 18 | + + + + + +------+---------+ + | | 2022-04-12 | [facility] | 13 | mg/dL | (missing) | | (unavailable | 12:32:08 | [facility] | | | | + + + +------+---------+ + + + | Result panel 19 | + + + + + +--------+---------+ + | | 2022-04-12 | [facility] | 0.73 | mg/dL | (missing) | | (unavailable | 12:32:08 | [facility] | | | | + + + +--------+---------+ + + + | Result panel 20 | + + + + + +-------+ + + | | 2022-04-12 | [facility] | 129 | (missing) | (missing) | | (unavailable | 12:32:08 | [facility] | | | | + + + +-------+ + + + + | Result panel 21 | + + + + + +---------+ + + | | 2022-04-12 | [facility] | 17.80 | (missing) | (missing) | | (unavailable | 12:32:08 | [facility] | | | | + + + +---------+ + + + + | Result panel 22 | + + + + + +-------+ + + | | 2022-04-12 | [facility] | 140 | (missing) | (missing) | | (unavailable | 12:32:08 | [facility] | | | | + + + +-------+ + + + + | Result panel 23 | + + + + + +-------+ + + | | 2022-04-12 | [facility] | 4.2 | (missing) | (missing) | | (unavailable | 12:32:08 | [facility] | | | | + + + +-------+ + + + + | Result panel 24 | + + + + + +-------+ + + | | 2022-04-12 | [facility] | 104 | (missing) | (missing) | | (unavailable | 12:32:08 | [facility] | | | | + + + +-------+ + + + + | Result panel 25 | + + + + + +------+ + + | | 2022-04-12 | [facility] | 27 | (missing) | (missing) | | (unavailable | 12:32:08 | [facility] | | | | + + + +------+ + + + + | Result panel 26 | + + + + + +--------+ + + | | 2022-04-12 | [facility] | 13.2 | (missing) | (missing) | | (unavailable | 12:32:08 | [facility] | | | | + + + +--------+ + + + + | Result panel 27 | + + + + + +-------+---------+ + | | 2022-04-12 | [facility] | 8.9 | mg/dL | (missing) | | (unavailable | 12:32:08 | [facility] | | | | + + + +-------+---------+ + + + | Result panel 28 | + + + + + +-------+ + + | | 2022-04-12 | [facility] | 7.1 | (missing) | (missing) | | (unavailable | 12:32:08 | [facility] | | | | + + + +-------+ + + + + | Result panel 29 | + + + + + +-------+ + + | | 2022-04-12 | [facility] | 4.2 | (missing) | (missing) | | (unavailable | 12:32:08 | [facility] | | | | + + + +-------+ + + + + | Result panel 30 | + + + + + +-------+ + + | | 2022-04-12 | [facility] | 2.9 | (missing) | (missing) | | (unavailable | 12:32:08 | [facility] | | | | + + + +-------+ + + + + | Result panel 31 | + + + + + +--------+ + + | | 2022-04-12 | [facility] | 1.45 | (missing) | (missing) | | (unavailable | 12:32:08 | [facility] | | | | + + + +--------+ + + + + | Result panel 32 | + + + + + +-------+ + + | | 2022-04-12 | [facility] | 0.4 | (missing) | (missing) | | (unavailable | 12:32:08 | [facility] | | | | + + + +-------+ + + + + | Result panel 33 | + + + + + +------+ + + | | 2022-04-12 | [facility] | 34 | (missing) | (missing) | | (unavailable | 12:32:08 | [facility] | | | | + + + +------+ + + + + | Result panel 34 | + + + + + +------+ + + | | 2022-04-12 | [facility] | 97 | (missing) | (missing) | | (unavailable | 12:32:08 | [facility] | | | | + + + +------+ + + + + | Result panel 35 | + + + + + +------+ + + | | 2022-04-12 | [facility] | 77 | (missing) | (missing) | | (unavailable | 12:32:08 | [facility] | | | | + + + +------+ + + + + | Result panel 36 | + + + + + +--------+ + + | | 2022-04-12 | [facility] | 29.4 | (missing) | (missing) | | (unavailable | :32:08 | [facility] | | | | + + + +--------+ + + + + | Result panel 37 | + + + + + +------+ + + | | 2022-04-12 | [facility] | // | (missing) | (missing) | | (unavailable | :08 | [facility] | | | | + + + +------+ + + + + | Result panel 38 | + + + + + +-------+ + + | | 2022-05-07 | [facility] | 7.2 | (missing) | (missing) | | (unavailable | 19:35:07 | [facility] | | | | + + + +-------+ + + + + | Result panel 39 | + + + + + +--------+ + + | | 2022-05-07 | [facility] | 4.86 | (missing) | (missing) | | (unavailable | 19:35:07 | [facility] | | | | + + + +--------+ + + + + | Result panel 40 | + + + + + +--------+ + + | | 2022-05-07 | [facility] | 14.6 | (missing) | (missing) | | (unavailable | 19:35:07 | [facility] | | | | + + + +--------+ + + + + | Result panel 41 | + + + + + +--------+ + + | | 2022-05-07 | [facility] | 43.2 | (missing) | (missing) | | (unavailable | 19:35:07 | [facility] | | | | + + + +--------+ + + + + | Result panel 42 | + + + + + +--------+ + + | | 2022-05-07 | [facility] | 89.0 | (missing) | (missing) | | (unavailable | 19:35:07 | [facility] | | | | + + + +--------+ + + + + | Result panel 43 | + + + + + +--------+ + + | | 2022-05-07 | [facility] | 30.1 | (missing) | (missing) | | (unavailable | 19:35:07 [facility] | | | | + + + +--------+ + + + + | Result panel 44 | + + + + + +--------+ + + | | 2022-05-07 | [facility] | 33.8 | (missing) | (missing) | | (unavailable | 19:35:07 | [facility] | | | | + + + +--------+ + + + + | Result panel 45 | + + + + + +--------+ + + | | 2022-05-07 | [facility] | 13.5 | (missing) | (missing) | | (unavailable | 19:35:07 | [facility] | | | | + + + +--------+ + + + + | Result panel 46 | + + + + + +-------+ + + | | 2022-05-07 | [facility] | 258 | (missing) | (missing) | | (unavailable | 19:35:07 | [facility] | | | | + + + +-------+ + + + + | Result panel 47 | + + + + + +--------+ + + | | 2022-05-07 | [facility] | 61.0 | (missing) | (missing) | | (unavailable | 19:35:07 | [facility] | | | | + + + +--------+ + + + + | Result panel 48 | + + + + + +--------+ + + | | 2022-05-07 | [facility] | 30.0 | (missing) | (missing) | | (unavailable | 19:35:07 | [facility] | | | | + + + +--------+ + + + + | Result panel 49 | + + + + + +-------+ + + | | 2022-05-07 | [facility] | 8.3 | (missing) | (missing) | | (unavailable | 19:35:07 | [facility] | | | | + + + +-------+ + + + + | Result panel 50 | + + + + + +-------+ + + | | 2022-05-07 | [facility] | 0.4 | (missing) | (missing) | | (unavailable | 19:35:07 | [facility] | | | | + + + +-------+ + + + + | Result panel 51 | + + + + + +-------+ + + | | 2022-05-07 | [facility] | 0.3 | (missing) | (missing) | | (unavailable | 19:35:07 | [facility] | | | | + + + +-------+ + + + + | Result panel 52 | + + + + + +-------+---------+ + | | 2022-05-07 | [facility] | 130 | mg/dL | (missing) | | (unavailable | 19:35:07 | [facility] | | | | + + + +-------+---------+ + + + | Result panel 53 | + + + + + +-----+---------+ + | | 2022-05-07 | [facility] | 9 | mg/dL | (missing) | | (unavailable | 19:35:07 | [facility] | | | | + + + +-----+---------+ + + + | Result panel 54 | + + + + + +--------+---------+ + | | 2022-05-07 | [facility] | 1.10 | mg/dL | (missing) | | (unavailable | 19:35:07 | [facility] | | | | + + + +--------+---------+ + + + | Result panel 55 | + + + + + +------+ + + | | 2022-05-07 | [facility] | 96 | (missing) | (missing) | | (unavailable | 19:35:07 | [facility] | | | | + + + +------+ + + + + | Result panel 56 | + + + + + +--------+ + + | | 2022-05-07 | [facility] | 8.18 | (missing) | (missing) | | (unavailable | 19:35:07 [facility] | | | | + + + +--------+ + + + + | Result panel 57 | + + + + + +-------+ + + | | 2022-05-07 | [facility] | 141 | (missing) | (missing) | | (unavailable | 19:35:07 [facility] | | | | + + + +-------+ + + + + | Result panel 58 | + + + + + +-------+ + + | | 2022-05-07 | [facility] | 3.7 | (missing) | (missing) | | (unavailable | 19:35:07 [facility] | | | | + + + +-------+ + + + + | Result panel 59 | + + + + + +-------+ + + | | 2022-05-07 | [facility] | 104 | (missing) | (missing) | | (unavailable | 19:35:07 [facility] | | | | + + + +-------+ + + + + | Result panel 60 | + + + + + +------+ + + | | 2022-05-07 | [facility] | 21 | (missing) | (missing) | | (unavailable | 19:35:07 [facility] | | | | + + + +------+ + + + + | Result panel 61 | + + + + + +--------+ + + | | 2022-05-07 | [facility] | 19.7 | (missing) | (missing) | | (unavailable | 19:35:07 [facility] | | | | + + + +--------+ + + + + | Result panel 62 | + + + + + +-------+---------+ + | | 2022-05-07 | [facility] | 8.8 | mg/dL | (missing) | | (unavailable | 19:35:07 [facility] | | | | + + + +-------+---------+ + + + | Result panel 63 | + + + + + +-------+ + + | | 2022-05-07 | [facility] | 7.5 | (missing) | (missing) | | (unavailable | 19:35:07 [facility] | | | | + + + +-------+ + + + + | Result panel 64 | + + + + + +-------+ + + | | 2022-05-07 | [facility] | 4.3 | (missing) | (missing) | | (unavailable | 19:35:07 [facility] | | | | + + + +-------+ + + + + | Result panel 65 | + + + + + +-------+ + + | | 2022-05-07 | [facility] | 3.2 | (missing) | (missing) | | (unavailable | 19:35:07 [facility] | | | | + + + +-------+ + + + + | Result panel 66 | + + + + + +--------+ + + | | 2022-05-07 | [facility] | 1.34 | (missing) | (missing) | | (unavailable | 19:35:07 [facility] | | | | + + + +--------+ + + + + | Result panel 67 | + + + + + +-------+ + + | | 2022-05-07 | [facility] | 0.4 | (missing) | (missing) | | (unavailable | 19:35:07 [facility] | | | | + + + +-------+ + + + + | Result panel 68 | + + + + + +------+ + + | | 2022-05-07 | [facility] | 30 | (missing) | (missing) | | (unavailable | 19:35:07 [facility] | | | | + + + +------+ + + + + | Result panel 69 | + + + + + +------+ + + | | 2022-05-07 | [facility] | 57 | (missing) | (missing) | | (unavailable | 19:35:07 | [facility] | | | | + + + +------+ + + + + | Result panel 70 | + + + + + +------+ + + | | 2022-05-07 | [facility] | 87 | (missing) | (missing) | | (unavailable | 19:35:07 | [facility] | | | | + + + +------+ + + + + | Result panel 71 | + + + + + + + + + | | 2022-05-07 | [facility] | YELLOW | (missing) | (missing) | | (unavailable | 20:35:07 | [facility] | | | | + + + + + + + + + | Result panel 72 | + + + + + +---------+ + + | | 2022-05-07 | [facility] | CLEAR | (missing) | (missing) | | (unavailable | 20:35:07 | [facility] | | | | + + + +---------+ + + + + | Result panel 73 | + + + + + + + + + | | 2022-05-07 | [facility] | NEGATIVE | (missing) | (missing) | | (unavailable | 20:35:07 [facility] | | | | + + + + + + + + + | Result panel 74 | + + + + + + + + + | | 2022-05-07 | [facility] | NEGATIVE | (missing) | (missing) | | (unavailable | 20:35:07 | [facility] | | | | + + + + + + + + + | Result panel 75 | + + + + + + + + + | | 2022-05-07 | [facility] | NEGATIVE | (missing) | (missing) | | (unavailable | 20:35:07 | [facility] | | [facility] | | | | + + + + + + + + + | Result panel 76 | + + + + + + + + + | | 2022-05-07 | [facility] | >=1.030 | (missing) | (missing) | | (unavailable | 20:35:07 | [facility] | | [facility] | | | | + + + + + + + + + | Result panel 77 | + + + + + + + + + | | 2022-05-07 | [facility] | TRACE-I | (missing) | (missing) | | (unavailable | 20:35:07 | [facility] | | [facility] | | | | + + + + + + + + + | Result panel 78 | + + + + + +-------+ + + | | 2022-05-07 | [facility] | 6.0 | (missing) | (missing) | | (unavailable | 20:35:07 | [facility] | [facility] | | | | + + + +-------+ + + + + | Result panel 79 | + + + + + +------+ + + | | 2022-05-07 | [facility] | 30 | (missing) | (missing) | | (unavailable | 20:35:07 | [facility] | | [facility] | | | | + + + +------+ + + + + | Result panel 80 | + + + + + + + + + | | 2022-05-07 | [facility] | NORMAL | (missing) | (missing) | | (unavailable | 20:35:07 | [facility] | [facility] | | | | + + + + + + + + + | Result panel 81 | + + + + + + + + + | | 2022-05-07 | [facility] | NEGATIVE | (missing) | (missing) | | (unavailable | 20:35:07 | [facility] | | | | + + + + + + + + + | Result panel 82 | + + + + + + + + + | | 2022-05-07 | [facility] | NEGATIVE | (missing) | (missing) | | (unavailable | 20:35:07 | [facility] | | | | + + + + + + + + + | Result panel 83 | + + + + + +-------+ + + | | 2022-05-07 | [facility] | 0-1 | (missing) | (missing) | | (unavailable | 20:35:07 | [facility] | [facility] | | | | + + + +-------+ + + + + | Result panel 84 | + + + + + +-------+ + + | | 2022-05-07 | [facility] | 0-1 | (missing) | (missing) | | (unavailable | 20:35:07 | [facility] | [facility] | | | | + + + +-------+ + + + + | Result panel 85 | + + + + + +-----+ + + | | 2022-05-07 | [facility] | 0 | (missing) | (missing) | | (unavailable | 20:35:07 | [facility] | | [facility] | | | | + + + +-----+ + + + + | Result panel 86 | + + + + + + + + + | | 2022-05-07 | [facility] | NONE SEEN | (missing) | (missing) | | (unavailable | 20:35:07 | [facility] | | | | + + + + + + + + + | Result panel 87 | + + + + + +--------+ + + | | 2022-05-07 | [facility] | RARE | (missing) | (missing) | | (unavailable | 20:35:07 | [facility] | | | | + + + +--------+ + + + + | Result panel 88 | + + + + + + + + + | | 2022-05-07 | [facility] | HYALINE 1+ | (missing) | (missing) | | (unavailable | 20:35:07 | [facility] | | | | + + + + + + + + + | Result panel 89 | + + + + + +------+ + + | | 2022-05-07 | [facility] | No | (missing) | (missing) | | (unavailable | 20:35:07 | [facility] | | | | + + + +------+ + + + + | Result panel 90 | + + + + + + + + + | | 2022-05-07 | [facility] | CLEAN CATCH | (missing) | (missing) | | (unavailable | 20:35:07 | [facility] | | | | + + + + + + + + + | Result panel 91 | + + + + + + + + + | | 2022-05-07 | [facility] | POSITIVE | (missing) | (missing) | | (unavailable | 20:35:07 | [facility] | | | | + + + + + + + + + | Result panel 92 | + + + + + + + + + | | 2022-05-07 | [facility] | NEGATIVE | (missing) | (missing) | | (unavailable | 20:35:07 | [facility] | | | | + + + + + + + + + | Result panel 93 | + + + + + + + + + | | 2022-05-07 | [facility] | POSITIVE | (missing) | (missing) | | (unavailable | 20:35:07 | [facility] | | | | + + + + + + + + + | Result panel 94 | + + + + + + + + + | | 2022-05-07 | [facility] | NEGATIVE | (missing) | (missing) | | (unavailable | 20:35:07 | [facility] | | | | + + + + + + + + + | Result panel 95 | + + + + + + + + + | | 2022-05-07 | [facility] | NEGATIVE | (missing) | (missing) | | (unavailable | 20:35:07 | [facility] | | | | + + + + + + + + + | Result panel 96 | + + + + + + + + + | | 2022-05-07 | [facility] | NEGATIVE | (missing) | (missing) | | (unavailable | 20:35:07 | [facility] | | | | + + + + + + + + + | Result panel 97 | + + + + + + + + + | | 2022-05-07 | [facility] | NEGATIVE | (missing) | (missing) | | (unavailable | 20:35:07 | [facility] | | | | + + + + + + + + + | Result panel 98 | + + + + + + + + + | | 2022-05-07 | [facility] | NEGATIVE | (missing) | (missing) | | (unavailable | 20:35:07 | [facility] | | | | + + + + + + + + + | Result panel 99 | + + + + + + + + + | | 2022-05-07 | [facility] | NEGATIVE | (missing) | (missing) | | (unavailable | 20:35:07 | [facility] | | | | + + + + + + + + + | Result panel 100 | + + + + + + + + + | | 2022-05-07 | [facility] | NEGATIVE | (missing) | (missing) | | (unavailable | 20:35:07 | [facility] | | | | + + + + + + + + + | Result panel 101 | + + + + + + + + + | | 2022-05-07 | [facility] | NEGATIVE | (missing) | (missing) | | (unavailable | 20:35:07 | [facility] | | | | + + + + + + + + + | Result panel 102 | + + + + + + + + + | | 2022-05-07 | [facility] | NEGATIVE | (missing) | (missing) | | (unavailable | 20:35:07 | [facility] | | | | + + + + + + + + + | Result panel 103 | + + + + + + + + + | | 2022-05-07 | [facility] | NEGATIVE | (missing) | (missing) | | (unavailable | 20:35:07 | [facility] | | | | + + + + + + + + + | Result panel 104 | + + + + + +------+ + + | | 2022-06-04 | [facility] | <3 | (missing) | (missing) | | (unavailable | 15:58:07 | [facility] | | | | + + + +------+ + + + + | Result panel 105 | + + + + + + + + + | | 2022-06-04 | [facility] | NEGATIVE | (missing) | (missing) | | (unavailable | 16:30:07 | [facility] | | | | + + + + + + + + + | Result panel 106 | + + + + + + + + + | | 2022-06-04 | [facility] | NEGATIVE | (missing) | (missing) | | (unavailable | 16:30:07 | [facility] | | | | + + + + + + + + + | Result panel 107 | + + + + + + + + + | | 2022-06-04 | [facility] | NEGATIVE | (missing) | (missing) | | (unavailable | 16:30:07 | [facility] | | | | + + + + + + + + + | Result panel 108 | + + + + + + + + + | | 2022-06-04 | [facility] | NEGATIVE | (missing) | (missing) | | (unavailable | 16:30:07 | [facility] | | | | + + + + + + + + + | Result panel 109 | + + + + + + + + + | | 2022-06-04 | [facility] | NEGATIVE | (missing) | (missing) | | (unavailable | 16:30:07 | [facility] | | | | + + + + + + + + + | Result panel 110 | + + + + + + + + + | | 2022-06-04 | [facility] | NEGATIVE | (missing) | (missing) | | (unavailable | 16:30:07 | [facility] | | | | + + + + + + + + + | Result panel 111 | + + + + + + + + + | | 2022-06-04 | [facility] | NEGATIVE | (missing) | (missing) | | (unavailable | 16:30:07 | [facility] | | | | + + + + + + + + + | Result panel 112 | + + + + + + + + + | | 2022-06-04 | [facility] | NEGATIVE | (missing) | (missing) | | (unavailable | 16:30:07 | [facility] | | | | + + + + + + + + + | Result panel 113 | + + + + + + + + + | | 2022-06-04 | [facility] | YELLOW | (missing) | (missing) | | (unavailable | 16:30:07 | [facility] | | | | + + + + + + + + + | Result panel 114 | + + + + + +---------+ + + | | 2022-06-04 | [facility] | CLEAR | (missing) | (missing) | | (unavailable | 16:30:07 | [facility] | | | | + + + +---------+ + + + + | Result panel 115 | + + + + + + + + + | | 2022-06-04 | [facility] | NEGATIVE | (missing) | (missing) | | (unavailable | 16:30:07 | [facility] | | | | + + + + + + + + + | Result panel 116 | + + + + + + + + + | | 2022-06-04 | [facility] | NEGATIVE | (missing) | (missing) | | (unavailable | 16:30:07 | [facility] | | | | + + + + + + + + + | Result panel 117 | + + + + + + + + + | | 2022-06-04 | [facility] | NEGATIVE | (missing) | (missing) | | (unavailable | 16:30:07 | [facility] | | | | + + + + + + + + + | Result panel 118 | + + + + + + + + + | | 2022-06-04 | [facility] | >=1.030 | (missing) | (missing) | | (unavailable | 16:30:07 | [facility] | | | | + + + + + + + + + | Result panel 119 | + + + + + + + + + | | 2022-06-04 | [facility] | NEGATIVE | (missing) | (missing) | | (unavailable | 16:30:07 | [facility] | | | | + + + + + + + + + | Result panel 120 | + + + + + +-------+ + + | | 2022-06-04 | [facility] | 6.0 | (missing) | (missing) | | (unavailable | 16:30:07 | [facility] | | | | + + + +-------+ + + + + | Result panel 121 | + + + + + +------+ + + | | 2022-06-04 | [facility] | 30 | (missing) | (missing) | | (unavailable | 16:30:07 | [facility] | | | | + + + +------+ + + + + | Result panel 122 | + + + + + + + + + | | 2022-06-04 | [facility] | NORMAL | (missing) | (missing) | | (unavailable | 16:30:07 | [facility] | | | | + + + + + + + + + | Result panel 123 | + + + + + + + + + | | 2022-06-04 | [facility] | NEGATIVE | (missing) | (missing) | | (unavailable | 16:30:07 | [facility] | | | | + + + + + + + + + | Result panel 124 | + + + + + + + + + | | 2022-06-04 | [facility] | NEGATIVE | (missing) | (missing) | | (unavailable | 16:30:07 | [facility] | | | | + + + + + + + + + | Result panel 125 | + + + + + +-------+ + + | | 2022-06-04 | [facility] | 0-1 | (missing) | (missing) | | (unavailable | 16:30:07 | [facility] | | | | + + + +-------+ + + + + | Result panel 126 | + + + + + +-------+ + + | | 2022-06-04 | [facility] | 0-1 | (missing) | (missing) | | (unavailable | 16:30:07 | [facility] | | | | + + + +-------+ + + + + | Result panel 127 | + + + + + +-----+ + + | | 2022-06-04 | [facility] | 0 | (missing) | (missing) | | (unavailable | 16:30:07 | [facility] | | | | + + + +-----+ + + + + | Result panel 128 | + + + + + + + + + | | 2022-06-04 | [facility] | NONE SEEN | (missing) | (missing) | | (unavailable | 16:30:07 | [facility] | | | | + + + + + + + + + | Result panel 129 | + + + + + +--------+ + + | | 2022-06-04 | [facility] | RARE | (missing) | (missing) | | (unavailable | 16:30:07 | [facility] | | | | + + + +--------+ + + + + | Result panel 130 | + + + + + + + + + | | 2022-06-04 | [facility] | HYALINE 1+ | (missing) | (missing) | | (unavailable | 16:30:07 | [facility] | | | | + + + + + + + + + | Result panel 131 | + + + + + +------+ + + | | 2022-06-04 | [facility] | No | (missing) | (missing) | | (unavailable | 16:30:07 | [facility] | | | | + + + +------+ + + + + | Result panel 132 | + + + + + + + + + | | 2022-06-04 | [facility] | CLEAN CATCH | (missing) | (missing) | | (unavailable | 16:30:07 | [facility] | | | | + + + + + + + + + | Result panel 133 | + + + + + + + + + | | 2022-06-04 | [facility] | POSITIVE | (missing) | (missing) | | (unavailable | 16:30:07 | [facility] | | | | + + + + + + + + + | Result panel 134 | + + + + + + + + + | | 2022-06-04 | [facility] | NEGATIVE | (missing) | (missing) | | (unavailable | 16:30:07 | [facility] | | | | + + + + + + + + + | Result panel 135 | + + + + + + + + + | | 2022-06-04 | [facility] | POSITIVE | (missing) | (missing) | | (unavailable | 16:30:07 | [facility] | | | | + + + + + + + + + | Result panel 136 | + + + + + + + + + | | 2022-06-04 | [facility] | NEGATIVE | (missing) | (missing) | | (unavailable | 16:30:07 | [facility] | | | | + + + + + + + + + | Result panel 137 | + + + + + + + + + | | 2022-06-04 | [facility] | NEGATIVE | (missing) | (missing) | | (unavailable | 16:30:07 | [facility] | | | | + + + + + + + + + | Result panel 138 | + + + + + +-------+ + + | | 2022-06-14 | [facility] | 6.2 | (missing) | (missing) | | (unavailable | 11:50:07 | [facility] | | | | + + + +-------+ + + + + | Result panel 139 | + + + + + +--------+ + + | | 2022-06-14 | [facility] | 5.34 | (missing) | (missing) | | (unavailable | 11:50:07 | [facility] | | | | + + + +--------+ + + + + | Result panel 140 | + + + + + +--------+ + + | | 2022-06-14 | [facility] | 16.0 | (missing) | (missing) | | (unavailable | 11:50:07 | [facility] | | | | + + + +--------+ + + + + | Result panel 141 | + + + + + +--------+ + + | | 2022-06-14 | [facility] | 47.4 | (missing) | (missing) | | (unavailable | 11:50:07 | [facility] | | | | + + + +--------+ + + + + | Result panel 142 | + + + + + +--------+ + + | | 2022-06-14 | [facility] | 88.6 | (missing) | (missing) | | (unavailable | 11:50:07 | [facility] | | | | + + + +--------+ + + + + | Result panel 143 | + + + + + +--------+ + + | | 2022-06-14 | [facility] | 29.9 | (missing) | (missing) | | (unavailable | 11:50:07 | [facility] | | | | + + + +--------+ + + + + | Result panel 144 | + + + + + +--------+ + + | | 2022-06-14 | [facility] | 33.7 | (missing) | (missing) | | (unavailable | 11:50:07 | [facility] | | | | + + + +--------+ + + + + | Result panel 145 | + + + + + +--------+ + + | | 2022-06-14 | [facility] | 13.4 | (missing) | (missing) | | (unavailable | 11:50:07 | [facility] | | | | + + + +--------+ + + + + | Result panel 146 | + + + + + +-------+ + + | | 2022-06-14 | [facility] | 240 | (missing) | (missing) | | (unavailable | 11:50:07 | [facility] | | | | + + + +-------+ + + + + | Result panel 147 | + + + + + +--------+ + + | | 2022-06-14 | [facility] | 69.4 | (missing) | (missing) | | (unavailable | 11:50:07 | [facility] | | | | + + + +--------+ + + + + | Result panel 148 | + + + + + +--------+ + + | | 2022-06-14 | [facility] | 23.1 | (missing) | (missing) | | (unavailable | 11:50:07 | [facility] | | | | + + + +--------+ + + + + | Result panel 149 | + + + + + +-------+ + + | | 2022-06-14 | [facility] | 6.7 | (missing) | (missing) | | (unavailable | 11:50:07 | [facility] | | | | + + + +-------+ + + + + | Result panel 150 | + + + + + +-------+ + + | | 2022-06-14 | [facility] | 0.6 | (missing) | (missing) | | (unavailable | 11:50:07 | [facility] | | | | + + + +-------+ + + + + | Result panel 151 | + + + + + +-------+ + + | | 2022-06-14 | [facility] | 0.2 | (missing) | (missing) | | (unavailable | 11:50:07 | [facility] | | | | + + + +-------+ + + + + | Result panel 152 | + + + + + +-------+---------+ + | | 2022-06-14 | [facility] | 106 | mg/dL | (missing) | | (unavailable | 11:50:07 | [facility] | | | | + + + +-------+---------+ + + + | Result panel 153 | + + + + + +------+---------+ + | | 2022-06-14 | [facility] | 13 | mg/dL | (missing) | | (unavailable | 11:50:07 | [facility] | | | | + + + +------+---------+ + + + | Result panel 154 | + + + + + +--------+---------+ + | | 2022-06-14 | [facility] | 0.90 | mg/dL | (missing) | | (unavailable | 11:50:07 | [facility] | | | | + + + +--------+---------+ + + + | Result panel 155 | + + + + + +-------+ + + | | 2022-06-14 | [facility] | 122 | (missing) | (missing) | | (unavailable | 11:50:07 | [facility] | | | | + + + +-------+ + + + + | Result panel 156 | + + + + + +---------+ + + | | 2022-06-14 | [facility] | 14.44 | (missing) | (missing) | | (unavailable | 11:50:07 | [facility] | | | | + + + +---------+ + + + + | Result panel 157 | + + + + + +-------+ + + | | 2022-06-14 | [facility] | 139 | (missing) | (missing) | | (unavailable | 11:50:07 | [facility] | | | | + + + +-------+ + + + + | Result panel 158 | + + + + + +-------+ + + | | 2022-06-14 | [facility] | 4.1 | (missing) | (missing) | | (unavailable | 11:50:07 | [facility] | | | | + + + +-------+ + + + + | Result panel 159 | + + + + + +-------+ + + | | 2022-06-14 | [facility] | 103 | (missing) | (missing) | | (unavailable | 11:50:07 | [facility] | | | | + + + +-------+ + + + + | Result panel 160 | + + + + + +------+ + + | | 2022-06-14 | [facility] | 24 | (missing) | (missing) | | (unavailable | 11:50:07 | [facility] | | | | + + + +------+ + + + + | Result panel 161 | + + + + + +--------+ + + | | 2022-06-14 | [facility] | 16.1 | (missing) | (missing) | | (unavailable | 11:50:07 | [facility] | | | | + + + +--------+ + + + + | Result panel 162 | + + + + + +-------+---------+ + | | 2022-06-14 | [facility] | 9.1 | mg/dL | (missing) | | (unavailable | 11:50:07 | [facility] | | | | + + + +-------+---------+ + + + | Result panel 163 | + + + + + +-------+---------+ + | | 2022-06-14 | [facility] | 2.1 | mg/dL | (missing) | | (unavailable | 11:50:07 | [facility] | | | | + + + +-------+---------+ + + + | Result panel 164 | + + + + + +-------+ + + | | 2022-06-14 | [facility] | 7.4 | (missing) | (missing) | | (unavailable | 11:50:07 | [facility] | | | | + + + +-------+ + + + + | Result panel 165 | + + + + + +-------+ + + | | 2022-06-14 | [facility] | 4.3 | (missing) | (missing) | | (unavailable | 11:50:07 | [facility] | | | | + + + +-------+ + + + + | Result panel 166 | + + + + + +-------+ + + | | 2022-06-14 | [facility] | 3.1 | (missing) | (missing) | | (unavailable | 11:50:07 | [facility] | | | | + + + +-------+ + + + + | Result panel 167 | + + + + + +--------+ + + | | 2022-06-14 | [facility] | 1.39 | (missing) | (missing) | | (unavailable | 11:50:07 | [facility] | | | | + + + +--------+ + + + + | Result panel 168 | + + + + + +-------+ + + | | 2022-06-14 | [facility] | 0.4 | (missing) | (missing) | | (unavailable | 11:50:07 | [facility] | | | | + + + +-------+ + + + + | Result panel 169 | + + + + + +------+ + + | | 2022-06-14 | [facility] | 24 | (missing) | (missing) | | (unavailable | 11:50:07 | [facility] | | | | + + + +------+ + + + + | Result panel 170 | + + + + + +------+ + + | | 2022-06-14 | [facility] | 72 | (missing) | (missing) | | (unavailable | 11:50:07 | [facility] | | | | + + + +------+ + + + + | Result panel 171 | + + + + + +------+ + + | | 2022-06-14 | [facility] | 87 | (missing) | (missing) | | (unavailable | 11:50:07 | [facility] | | | | + + + +------+ + + + + | Result panel 172 | + + + + + +-------+ + + | | 2022-06-14 | [facility] | 4.6 | (missing) | (missing) | | (unavailable | 11:50:07 | [facility] | | | | + + + +-------+ + + + + | Result panel 173 | + + + + + + + + + | | 2022-06-14 | [facility] | 06/13/2022 | (missing) | (missing) | | (unavailable | 11:50:07 | [facility] | [facility] | | [facility] | | | | + + + + + + + + + | Result panel 174 | + + + + + + + + + | | 2022-07-07 | | (missing) | (missing) | (missing) | | (unavailable | 22:41:41 | [facility] | | | | | ) | | [facility] | | | | | | | at [facility] | [facility] | | | | + + + + + + + + + | Result panel 175 | + + + + + +--------+ + + | | 2022-09-02 | [facility] | 11.6 | (missing) | (missing) | | (unavailable | 20:32:07 | [facility] | | | | + + + +--------+ + + + + | Result panel 176 | + + + + + +--------+ + + | | 2022-09-02 | [facility] | 63.9 | (missing) | (missing) | | (unavailable | 20:32:07 | [facility] | | | | + + + +--------+ + + + + | Result panel 177 | + + + + + +--------+ + + | | 2022-09-02 | [facility] | 28.9 | (missing) | (missing) | | (unavailable | 20:32:07 | [facility] | | | | + + + +--------+ + + + + | Result panel 178 | + + + + + +-------+ + + | | 2022-09-02 | [facility] | 6.6 | (missing) | (missing) | | (unavailable | 20:32:07 | [facility] | | | | + + + +-------+ + + + + | Result panel 179 | + + + + + +-------+ + + | | 2022-09-02 | [facility] | 0.2 | (missing) | (missing) | | (unavailable | 20:32:07 | [facility] | | | | + + + +-------+ + + + + | Result panel 180 | + + + + + +-------+ + + | | 2022-09-02 | [facility] | 0.4 | (missing) | (missing) | | (unavailable | 20:32:07 | [facility] | | | | + + + +-------+ + + + + | Result panel 181 | + + + + + +-------+---------+ + | | 2022-09-02 | [facility] | 139 | mg/dL | (missing) | | (unavailable | 20:32:07 | [facility] | | | | + + + +-------+---------+ + + + | Result panel 182 | + + + + + +------+---------+ + | | 2022-09-02 | [facility] | 13 | mg/dL | (missing) | | (unavailable | 20:32:07 | [facility] | | | | + + + +------+---------+ + + + | Result panel 183 | + + + + + +--------+---------+ + | | 2022-09-02 | [facility] | 1.51 | mg/dL | (missing) | | (unavailable | 20:32:07 | [facility] | | | | + + + +--------+---------+ + + + | Result panel 184 | + + + + + +------+ + + | | 2022-09-02 | [facility] | 65 | (missing) | (missing) | | (unavailable | 20:32:07 | [facility] | | | | + + + +------+ + + + + | Result panel 185 | + + + + + +--------+ + + | | 2022-09-02 | [facility] | 5.26 | (missing) | (missing) | | (unavailable | 20:32:07 | [facility] | | | | + + + +--------+ + + + + | Result panel 186 | + + + + + +--------+ + + | | 2022-09-02 | [facility] | 8.60 | (missing) | (missing) | | (unavailable | 20:32:07 | [facility] | | | | + + + +--------+ + + + + | Result panel 187 | + + + + + +-------+ + + | | 2022-09-02 | [facility] | 142 | (missing) | (missing) | | (unavailable | 20:32:07 | [facility] | | | | + + + +-------+ + + + + | Result panel 188 | + + + + + +-------+ + + | | 2022-09-02 | [facility] | 3.7 | (missing) | (missing) | | (unavailable | 20:32:07 | [facility] | | | | + + + +-------+ + + + + | Result panel 189 | + + + + + +-------+ + + | | 2022-09-02 | [facility] | 105 | (missing) | (missing) | | (unavailable | 20:32:07 | [facility] | | | | + + + +-------+ + + + + | Result panel 190 | + + + + + +------+ + + | | 2022-09-02 | [facility] | 15 | (missing) | (missing) | | (unavailable | 20:32:07 | [facility] | | | | + + + +------+ + + + + | Result panel 191 | + + + + + +--------+ + + | | 2022-09-02 | [facility] | 25.7 | (missing) | (missing) | | (unavailable | 20:32:07 | [facility] | | | | + + + +--------+ + + + + | Result panel 192 | + + + + + +-------+---------+ + | | 2022-09-02 | [facility] | 8.7 | mg/dL | (missing) | | (unavailable | 20:32:07 | [facility] | | | | + + + +-------+---------+ + + + | Result panel 193 | + + + + + +-------+---------+ + | | 2022-09-02 | [facility] | 2.2 | mg/dL | (missing) | | (unavailable | 20:32:07 | [facility] | | | | + + + +-------+---------+ + + + | Result panel 194 | + + + + + +-------+ + + | | 2022-09-02 | [facility] | 8.1 | (missing) | (missing) | | (unavailable | 20:32:07 | [facility] | | | | + + + +-------+ + + + + | Result panel 195 | + + + + + +-------+ + + | | 2022-09-02 | [facility] | 4.5 | (missing) | (missing) | | (unavailable | 20:32:07 | [facility] | | | | + + + +-------+ + + + + | Result panel 196 | + + + + + +--------+ + + | | 2022-09-02 | [facility] | 15.2 | (missing) | (missing) | | (unavailable | 20:32:07 | [facility] | | | | + + + +--------+ + + + + | Result panel 197 | + + + + + +-------+ + + | | 2022-09-02 | [facility] | 3.6 | (missing) | (missing) | | (unavailable | 20:32:07 | [facility] | | | | + + + +-------+ + + + + | Result panel 198 | + + + + + +--------+ + + | | 2022-09-02 | [facility] | 1.25 | (missing) | (missing) | | (unavailable | 20:32:07 | [facility] | | | | + + + +--------+ + + + + | Result panel 199 | + + + + + +-------+ + + | | 2022-09-02 | [facility] | 0.7 | (missing) | (missing) | | (unavailable | 20:32:07 | [facility] | | | | + + + +-------+ + + + + | Result panel 200 | + + + + + +------+ + + | | 2022-09-02 | [facility] | 32 | (missing) | (missing) | | (unavailable | 20:32:07 | [facility] | | | | + + + +------+ + + + + | Result panel 201 | + + + + + +------+ + + | | 2022-09-02 | [facility] | 63 | (missing) | (missing) | | (unavailable | 20:32:07 | [facility] | | | | + + + +------+ + + + + | Result panel 202 | + + + + + +------+ + + | | 2022-09-02 | [facility] | 77 | (missing) | (missing) | | (unavailable | 20:32:07 | [facility] | | | | + + + +------+ + + + + | Result panel 203 | + + + + + +-------+ + + | | 2022-09-02 | [facility] | 351 | (missing) | (missing) | | (unavailable | 20:32:07 | [facility] | | | | + + + +-------+ + + + + | Result panel 204 | + + + + + +--------+ + + | | 2022-09-02 | [facility] | 46.3 | (missing) | (missing) | | (unavailable | 20:32:07 | [facility] | | | | + + + +--------+ + + + + | Result panel 205 | + + + + + +--------+ + + | | 2022-09-02 | [facility] | 88.1 | (missing) | (missing) | | (unavailable | 20:32:07 | [facility] | | | | + + + +--------+ + + + + | Result panel 206 | + + + + + +--------+ + + | | 2022-09-02 | [facility] | 28.8 | (missing) | (missing) | | (unavailable | 20:32:07 | [facility] | | | | + + + +--------+ + + + + | Result panel 207 | + + + + + +--------+ + + | | 2022-09-02 | [facility] | 32.7 | (missing) | (missing) | | (unavailable | 20:32:07 | [facility] | | | | + + + +--------+ + + + + | Result panel 208 | + + + + + +--------+ + + | | 2022-09-02 | [facility] | 13.1 | (missing) | (missing) | | (unavailable | 20:32:07 | [facility] | | | | + + + +--------+ + + + + | Result panel 209 | + + + + + +-------+ + + | | 2022-09-02 | [facility] | 310 | (missing) | (missing) | | (unavailable | 20:32:07 | [facility] | | | | + + + +-------+ + + + + | Result panel 210 | + + + + + +-------+ + + | | 2022-09-02 | [facility] | 145 | (missing) | (missing) | | (unavailable | 20:34:07 | [facility] | | | | | ) | | [facility] | | | | + + + +-------+ + + Social History + + + + | date | description | facility | + + + + | 2014-02-21 00:00 | Current smoker | Cardiopulmonary Services | | | | [facility] | + + + + | 2014-02-21 00:00 | Current smoker | [facility] | | | | [facility] | + + + + | 2022-05-27 00:00 | Ex-smoker | Cardiopulmonary Services | | | | at [facility] | + + + + | 2022-05-27 00:00 | Ex-smoker | [facility] | | | | [facility] | + + + + Vital Signs + + + +---------+ | date | measurement | value | units | + + + +---------+ | 2021-12-15 00:00 | BMI | 41.9 | kg/m2 | + + + +---------+ | 2021-12-15 00:00 | height_metric | 187.96 | cm | + + + +---------+ | 2021-12-15 00:00 | height_standard | 74 | in | + + + +---------+ | 2021-12-15 00:00 | weight_metric | 148 | kg | + + + +---------+ | 2021-12-15 00:00 | weight_standard | 326.28 | lb | + + + +---------+ | 2021-12-15 00:00 | weight_standard | 326.29 | lb | + + + +---------+ | 2021-12-16 00:00 | BP_diastolic | 76 | mmHg | + + + +---------+ | 2021-12-16 00:00 | BP_systolic | 140 | mmHg | + + + +---------+ | 2021-12-16 00:00 | heart_rate | 107 | /min | + + + +---------+ | 2021-12-16 00:00 | o2_saturation | 100 | % | + + + +---------+ | 2021-12-16 00:00 | respiration_rate | 20 | /min | + + + +---------+ | 2021-12-16 00:00 | temperature_metric | 36.56 | C | | | | | | + + + +---------+ | 2021-12-16 00:00 | | 97.8 | F | | | temperature_standar | | | | | d | | | + + + +---------+ | 2022-04-12 00:00 | BMI | 40.0 | kg/m2 | + + + +---------+ | 2022-04-12 00:00 | BP_diastolic | 64 | mmHg | + + + +---------+ | 2022-04-12 00:00 | BP_diastolic | 78 | mmHg | + + + +---------+ | 2022-04-12 00:00 | BP_systolic | 147 | mmHg | + + + +---------+ | 2022-04-12 00:00 | BP_systolic | 155 | mmHg | + + + +---------+ | 2022-04-12 00:00 | heart_rate | 87 | /min | + + + +---------+ | 2022-04-12 00:00 | heart_rate | 91 | /min | + + + +---------+ | 2022-04-12 00:00 | height_metric | 187.96 | cm | + + + +---------+ | 2022-04-12 00:00 | height_standard | 74 | in | + + + +---------+ | 2022-04-12 00:00 | o2_saturation | 100 | % | + + + +---------+ | 2022-04-12 00:00 | o2_saturation | 88 | % | + + + +---------+ | 2022-04-12 00:00 | respiration_rate | 18 | /min | + + + +---------+ | 2022-04-12 00:00 | temperature_metric | 37 | C | | | | | | + + + +---------+ | 2022-04-12 00:00 | temperature_metric | 37.06 | C | | | | | | + + + +---------+ | 2022-04-12 00:00 | | 98.6 | F | | | temperature_standar | | | | | d | | | + + + +---------+ | 2022-04-12 00:00 | | 98.7 | F | | | temperature_standar | | | | | d | | | + + + +---------+ | 2022-04-12 00:00 | weight_metric | 141.18 | kg | + + + +---------+ | 2022-04-12 00:00 | weight_standard | 311.25 | lb | + + + +---------+ | 2022-05-07 00:00 | BMI | 40.0 | kg/m2 | + + + +---------+ | 2022-05-07 00:00 | BP_diastolic | 99 | mmHg | + + + +---------+ | 2022-05-07 00:00 | BP_systolic | 163 | mmHg | + + + +---------+ | 2022-05-07 00:00 | heart_rate | 88 | /min | + + + +---------+ | 2022-05-07 00:00 | height_metric | 187.96 | cm | + + + +---------+ | 2022-05-07 00:00 | height_standard | 74 | in | + + + +---------+ | 2022-05-07 00:00 | o2_saturation | 99 | % | + + + +---------+ | 2022-05-07 00:00 | respiration_rate | 14 | /min | + + + +---------+ | 2022-05-07 00:00 | temperature_metric | 36.83 | C | | | | | | + + + +---------+ | 2022-05-07 00:00 | | 98.3 | F | | | temperature_standar | | | | | d | | | + + + +---------+ | 2022-05-07 00:00 | weight_metric | 141.18 | kg | + + + +---------+ | 2022-05-07 00:00 | weight_standard | 311.25 | lb | + + + +---------+ | 2022-05-27 00:00 | BMI | 42.54 | kg/m2 | + + + +---------+ | 2022-05-27 00:00 | BP_diastolic | 80 | mmHg | + + + +---------+ | 2022-05-27 00:00 | BP_systolic | 120 | mmHg | + + + +---------+ | 2022-05-27 00:00 | heart_rate | 60 | /min | + + + +---------+ | 2022-05-27 00:00 | height_metric | 184.2 | cm | + + + +---------+ | 2022-05-27 00:00 | height_standard | 72.52 | in | + + + +---------+ | 2022-05-27 00:00 | weight_metric | 144.24 | kg | + + + +---------+ | 2022-05-27 00:00 | weight_standard | 318 | lb | + + + +---------+ | 2022-06-04 00:00 | BP_diastolic | 82 | mmHg | + + + +---------+ | 2022-06-04 00:00 | BP_systolic | 125 | mmHg | + + + +---------+ | 2022-06-04 00:00 | heart_rate | 82 | /min | + + + +---------+ | 2022-06-04 00:00 | height_metric | 187.96 | cm | + + + +---------+ | 2022-06-04 00:00 | height_standard | 74 | in | + + + +---------+ | 2022-06-04 00:00 | o2_saturation | 98 | % | + + + +---------+ | 2022-06-04 00:00 | respiration_rate | 18 | /min | + + + +---------+ | 2022-06-04 00:00 | temperature_metric | 36.78 | C | | | | | | + + + +---------+ | 2022-06-04 00:00 | | 98.2 | F | | | temperature_standar | | | | | d | | | + + + +---------+ | 2022-06-14 00:00 | BMI | 39.9 | kg/m2 | + + + +---------+ | 2022-06-14 00:00 | BP_diastolic | 82 | mmHg | + + + +---------+ | 2022-06-14 00:00 | BP_systolic | 135 | mmHg | + + + +---------+ | 2022-06-14 00:00 | heart_rate | 88 | /min | + + + +---------+ | 2022-06-14 00:00 | height_metric | 187.96 | cm | + + + +---------+ | 2022-06-14 00:00 | height_standard | 74 | in | + + + +---------+ | 2022-06-14 00:00 | o2_saturation | 99 | % | + + + +---------+ | 2022-06-14 00:00 | respiration_rate | 16 | /min | + + + +---------+ | 2022-06-14 00:00 | temperature_metric | 36.56 | C | | | | | | + + + +---------+ | 2022-06-14 00:00 | | 97.8 | F | | | temperature_standar | | | | | d | | | + + + +---------+ | 2022-06-14 00:00 | weight_metric | 141.07 | kg | + + + +---------+ | 2022-06-14 00:00 | weight_standard | 311 | lb | + + + +---------+ | 2022-06-14 00:00 | weight_standard | 311.01 | lb | + + + +---------+ | 2022-09-02 00:00 | BMI | 39.9 | kg/m2 | + + + +---------+ | 2022-09-02 00:00 | BP_diastolic | 102 | mmHg | + + + +---------+ | 2022-09-02 00:00 | BP_systolic | 121 | mmHg | + + + +---------+ | 2022-09-02 00:00 | heart_rate | 92 | /min | + + + +---------+ | 2022-09-02 00:00 | height_metric | 187.96 | cm | + + + +---------+ | 2022-09-02 00:00 | height_standard | 74 | in | + + + +---------+ | 2022-09-02 00:00 | o2_saturation | 99 | % | + + + +---------+ | 2022-09-02 00:00 | respiration_rate | 18 | /min | + + + +---------+ | 2022-09-02 00:00 | temperature_metric | 37.06 | C | | | | | | + + + +---------+ | 2022-09-02 00:00 | | 98.7 | F | | | temperature_standar | | | | | d | | | + + + +---------+ | 2022-09-02 00:00 | weight_metric | 141.07 | kg | + + + +---------+ | 2022-09-02 00:00 | weight_standard | 311 | lb | + + + +---------+ | 2022-09-02 00:00 | weight_standard | 311.01 | lb | + + + +---------+"
--- OUTSIDE RECORDS SUMMARY | ~2022-10-08 | XMS | Continuity of Care Document ---
Demographics + + + | Address | [address] | | | [place] [address] | + + + | Preferred Language | Unknown | + + + | Marital Status | | + + + | Caodaism Affiliation | Unknown | + + + | Race | White | + + + | Ethnic Group | Unknown | + + + Author + + + | Author | [facility] | + + + | Organization | [facility] | + + + | Address | [address] | | | [place] [address] | + + + | Phone | | + + + Care Team Providers + + + + | Care Analysis Analyst Name | Role | Phone | + [...] | (no date) | NO ALLERGY | [facility] | (no reaction) | (no severity) | | | INFORMATION ON | Medical Center | | | | | FILE | Hospital | | | + + + + + + | (no date) | NO KNOWN | [facility] | (no reaction) | (no severity) | [...] Services | | | tablet | at [facility] | + + + + | 2022-05-27 00:00 | phenytoin 50 mg chewable | [facility] | | | tablet | [facility] | + + + + | 2016-06-04 00:00 | IBUPROFEN | [facility] | + + + + | 2016-06-04 00:00 | IBUPROFEN | [facility] | + + + + | 2022-09-02 00:00 | Diazepam | [facility] | + + + + | 2019-08-02 00:00 | LEVETIRACETAM | [facility] | + + + + | 2019-08-02 00:00 | LEVETIRACETAM | [facility] | + + + + | 2022-04-12 00:00 | LEVETIRACETAM | [facility] | + + + + | 2022-04-12 00:00 | LEVETIRACETAM | [facility] | + + + + | 2021-12-16 00:00 | AMOXICILLIN | [facility] | + + + + | 2021-12-16 00:00 | IBUPROFEN | [facility] | + + + + | 2022-04-12 00:00 | IBUPROFEN | [facility] | + + + + | 2022-05-07 00:00 | IBUPROFEN | [facility] | + + + + | 2022-06-14 00:00 | IBUPROFEN | [facility] | + + + + | 2022-09-03 00:00 | IBUPROFEN | [facility] | + + + + | 2022-05-27 00:00 | levetiracetam 250 mg oral | Cardiopulmonary Services | | | tablet | at [facility] | + + + + | 2022-05-27 00:00 | levetiracetam 250 mg oral | [facility] | | | tablet | [facility] | + + + + | 2022-05-08 00:00 | levetiracetam 750 mg oral | [facility] | | | tablet | [facility] | + + + + | 2022-06-09 00:00 | levetiracetam 750 mg oral | Cardiopulmonary Services | | | tablet | [facility] | + + + + | 2022-06-14 00:00 | LEVETIRACETAM | [facility] | + + + + | 2022-09-03 00:00 | LEVETIRACETAM | [facility] | + + + + | 2021-03-09 00:00 | PHENYTOIN SODIUM EXTENDED | [facility] | + + + + | 2022-05-27 00:00 | phenytoin sodium 100 mg | Cardiopulmonary Services | | | extended release oral | at [facility] | | | capsule | | + + + + | 2022-05-27 00:00 | phenytoin sodium 100 mg | [facility] | | | extended release oral | [facility] | | | capsule | | + + + + | 2021-02-13 00:00 | PHENYTOIN SODIUM | [facility] | + + + + | 2021-02-13 00:00 | PHENYTOIN SODIUM | [facility] | + + + + | 2022-05-11 00:00 | phenytoin sodium 200 mg | [facility] | | | extended release oral | [facility] | | | capsule | | + + + + | 2022-04-12 00:00 | PHENYTOIN SODIUM EXTENDED | [facility] | + + + + | 2022-05-07 00:00 | PHENYTOIN SODIUM EXTENDED | [facility] | + + + + | 2022-06-14 00:00 | PHENYTOIN SODIUM EXTENDED | [facility] | + + + + | 2022-09-03 00:00 | PHENYTOIN SODIUM EXTENDED | [facility] | + + + + | 2021-12-16 00:00 | HYDROCODONE | [facility] | | | BIT/ACETAMINOPHEN | | + + + + Problems + + + + | date | description | facility | + + + + | 2016-06-04 00:00 | Upper respiratory tract | [facility] | | | infection | | + + + + | 2016-06-04 00:00 | Upper respiratory tract | [facility] | | | infection | | + + + + | 2016-06-04 00:00 | Headache | [facility] | + + + + | 2016-06-04 00:00 | Headache | [facility] | + + + + | 2021-02-13 00:00 | Seizure | [facility] | + + + + | 2021-02-13 00:00 | Seizure | [facility] | + + + + | 2021-03-09 00:00 | Seizure disorder | [facility] | + + + + | 2021-03-09 00:00 | Seizure disorder | [facility] | + + + + | 2021-12-16 00:00 | Dental abscess | [facility] | + + + + | 2021-12-16 00:00 | Dental abscess | [facility] | + + + + | 2022-05-27 10:12:35 | 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, | [facility]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, 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 | | + + + + | 2022-06-04 00:00 | Recurrent seizures | [facility] | + + + + | 2022-07-06 08:26:40 | 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, | [facility]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, 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 | | + + + + | 2022-07-06 15:54:41 | 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, | [facility]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, 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 | | + + + + | 2022-07-06 15:54:41 | Epilepsy, unspecified, | [facility] | | | intractable, without status | [facility] | | | epilepticus | | + + + + | 2022-09-02 20:23 | UNSPECIFIED CONVULSIONS | [facility] | + + + + | 2022-09-16 14:42:38 | 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 with | | | | seizures of localized | | | | onset, intractable, 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 | | + + + + | 2022-09-16 14:42:38 | 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) | [facility] | | | drug therapy | [facility] | + + + + | 2022-09-24 [...] + + | 2022-07-06 00:00 | 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
[~2022-10-08 09:47] MED LIST changes: +VALTOCO20 MG/0.2 NAS
--- OUTSIDE RECORDS SUMMARY | 2022-10-08 09:50 | XMS ---
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 Care History Medical/Surgical 03/10/2021 [facility] - Patient is currently established with [facility]. If patient is seen in the ED during business hours. Please contact CHWs at [facility]. Care Recommendation: If this patient has had [...] providing care. E.D. VISIT COUNT (12 [address] [facility] [address] 1 [facility] TOTAL 9 NOTE: Visits indicate total known visits. ED/UCC VISIT TRACKING (12 MO.) 10/08/2022 09:48 [facility] [place] TYPE: Emergency COMPLAINT: - SEIZURE 09/02/2022 20:23 [facility] [place] TYPE: Emergency COMPLAINT: - SEIZURE DIAGNOSES: - Unspecified convulsions 06/14/2022 11:37 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 [place] TYPE: Emergency COMPLAINT: - SEIZURE DIAGNOSES: - Epilepsy, unspecified, not intractable, without status epilepticus - Other senior living (current) drug therapy - Personal history of nicotine dependence 05/07/2022 19:26 [facility] [place] TYPE: Emergency COMPLAINT: - SEIZURES 04/12/2022 12:12 [facility] [address] [place] TYPE: Emergency COMPLAINT: - SEIZURE DIAGNOSES: - Epilepsy, unspecified, not intractable, without status epilepticus - Other senior living (current) drug therapy - Personal history of nicotine dependence 12/15/2021 23:32 [facility] [place] TYPE: Emergency COMPLAINT: - DENTAL PAIN DIAGNOSES: - Other specified disorders of teeth and supporting structures - Periapical abscess without sinus - Personal history of nicotine dependence 12/09/2021 17:12 [facility] [place] TYPE: Emergency COMPLAINT: - SEIZURE DIAGNOSES: - SEIZURE INPATIENT VISIT TRACKING (12 MO.) No inpatient visits to display in this time frame [email or web address]
[2022-10-08] MEDS ORDERED: KEPPRA250 MG PO (10:03)
[2022-10-08] MEDS ORDERED: LAMICTAL25 MG PO (10:03)
[2022-10-08] MEDS ORDERED: MELATONIN5 M4 (10:04)
[2022-10-08 10:09] LABS: BASOPHILS 0.4 % (0-2); HEMATOCRIT 47.5 % (35.0-50.0); HEMOGLOBIN 15.7 g/dL (12.0-18.0); LYMPHOCYTES 23.3 % (24-44); MCH 29.1 (27-36); MCV 87.9 fl (81-99); MONOCYTES 5.6 % (0-12); NEUTROPHILS 69.7 % (39-80); PLATELET COUNT 273 K/uL (140-440); RDW 13.1 (10.5-15.0)
[2022-10-08 10:19] LABS: ALBUMIN 4.2 g/dL (3.4-5.0); ALBUMIN/GLOBULIN RATIO 1.27 (1.1-2.4); ANION GAP 19.9 (7-21); BILIRUBIN, TOTAL 0.3 ng/dL (0.2-1.0); BUN/CREATININE RATIO 12.63 (6.0-28.6); CALCIUM 8.8 mg/dL (8.5-10.1); CREATININE, SERUM 0.95 mg/dL (0.70-1.30); POTASSIUM 3.9 mmol/L (3.5-5.1); PROTEIN, TOTAL 7.5 g/dL (6.4-8.2)
[2022-10-08 13:36] VITALS: BP 115/62
== END 2022-10-08 13:36 ==
LOC: ED 09:47
PROVIDERS: Student in an Organized Health Care Education/Training Program
DX: R56.9 Unspecified convulsions (principal); Z87.891 Personal history of nicotine dependence
CPT/HCPCS: 36415; 80053; 83735; 85025; 96374; 99284-25; J2405; J7030

== ENCOUNTER 2023-01-15 18:10 | Emergency (ER) | payer OTHER ==
[~2023-01-15] VITALS: Ht 188 cm; Wt 156.6 kg
[~2023-01-15 18:10] MED LIST changes: +KEPPRA1000 MG; +LAMICTAL200 MG; +MELATONIN5 M4
[2023-01-15 18:48] LABS: BASOPHILS 0.3 % (0-2); EOSINOPHILS 0.7 % (0-6); HEMATOCRIT 48.2 % (35.0-50.0); LYMPHOCYTES 31.1 % (24-44); MCH 29.7 (27-36); MCHC 33.2 g/dl (30-36); MCV 89.3 fl (81-99); MONOCYTES 7.3 % (0-12); NEUTROPHILS 60.6 % (39-80); PLATELET COUNT 330 K/uL (140-440); RDW 13.7 (10.5-15.0)
[2023-01-15 18:51] LABS: ALBUMIN 4.4 g/dL (3.4-5.0); ALBUMIN/GLOBULIN RATIO 1.33 (1.1-2.4); ANION GAP 7.8 (7-21); BILIRUBIN, TOTAL 0.3 ng/dL (0.2-1.0); BUN/CREATININE RATIO 13.04 (6.0-28.6); CALCIUM 8.1 mg/dL (8.5-10.1); CREATININE, SERUM 0.92 mg/dL (0.70-1.30); POTASSIUM 3.8 mmol/L (3.5-5.1); PROTEIN, TOTAL 7.7 g/dL (6.4-8.2)
[2023-01-15 20:07] LABS: BASE EXCESS, BLOOD GAS -3.2 mmol/L (-2-2); HCO3, BLOOD GAS 25.5 mmol/L (22-26); O2 SATURATION, BLOOD GAS 98.9 % (95.0-100.0); PCO2, BLOOD GAS 59.2 mmHg (35-45); PH, BLOOD GAS 7.24 (7.35-7.45); PO2, BLOOD GAS 240 mmHg (80-100); TOTAL CO2, BLOOD GAS 27.3
[2023-01-15 20:19] LABS: BILIRUBIN, URINE NEGATIVE (negative); BLOOD/HGB, URINE TRACE-I (Negative); KETONE, URINE NEGATIVE (Negative); LEUK ESTERASE, URINE NEGATIVE (negative); NITRITE, URINE NEGATIVE (negative)
[2023-01-15 20:27] LABS: CRYSTALS, URINE URIC ACID 4+ (0-1+); EPITHELIAL CELLS, URINE SQUAMOUS 1+ /lpf (0-1+); REFLEX CULTURE, URINE No (No); WHITE BLOOD CELLS, URINE 0-1 /HPF (0-5)
[2023-01-15 20:40] LABS: AMPHETAMINES, URINE NEGATIVE (NEGATIVE); BARBITURATES, URINE NEGATIVE (NEGATIVE); BENZODIAZEPINE, URINE POSITIVE (NEGATIVE); BUPRENORPHINE, URINE NEGATIVE (NEGATIVE); CANNABINOID, URINE POSITIVE (NEGATIVE); COCAINE, URINE NEGATIVE (NEGATIVE); ECSTASY, URINE NEGATIVE (NEGATIVE); FENTANYL, URINE NEGATIVE (NEGATIVE); METHADONE, URINE NEGATIVE (NEGATIVE); OPIATES, URINE NEGATIVE (NEGATIVE); OXYCODONE, URINE NEGATIVE (NEGATIVE); PHENCYCLIDINE, URINE NEGATIVE (NEGATIVE)
[2023-01-15 21:43] LABS: INFLUENZA B NAA NEGATIVE (NEGATIVE); RESPIRATORY SYNCYTIAL VIR NAA NEGATIVE (NEGATIVE)
[2023-01-15 22:20] VITALS: BP 105/50
--- NOTE | 2023-01-16 05:54 | EKG ---
[facility] [address] [place], [place] [address] Signed Sinus rhythm with marked sinus arrhythmia Incomplete right bundle branch block Borderline ECG When compared with ECG of 15-JAN-2023 18:35, (Unconfirmed) No significant change was found Confirmed by RUBI JO MD ([id number]) on 01/16/2023 5:54:04 AM Electronically Signed By: RUBI JO 01/16/23 [id number] PATIENT NAME: ESHA DE JESUS [place] Electrocardiogram DATE OF : [birth year] PHYSICIAN: RUBI JO REPORT #: [id number] REPORT IS CONFIDENTIAL AND NOT TO BE RELEASED WITHOUT AUTHORIZATION
== END 2023-01-15 23:28 | disposition short-term general hospital (02) ==
LOC: ED 18:10
PROVIDERS: Emergency Medicine; Internal Medicine
DX: G40.901 Epilepsy, unspecified, not intractable, with status epilepticus (principal); J96.90 Respiratory failure, unspecified, unspecified whether with hypoxia or hypercapnia; J45.909 Unspecified asthma, uncomplicated; Z11.52 Encounter for screening for COVID-19; Z87.891 Personal history of nicotine dependence; Z79.899 Other long term (current) drug therapy
CPT/HCPCS: 31500; 36415; 36556; 36600; 51702; 70450; 71045; 80053; 80185; 80307; 81001; 82803; 85025; 87502; 93005; 93010; 99285-25; C9803; J0330; J1953; J2250; J2704; U0002

== ENCOUNTER 2023-02-11 15:37 | Emergency (ER) | payer OTHER ==
[~2023-02-11] VITALS: Ht 188 cm; Wt 160.7 kg
[2023-02-11 15:55] LABS: BASOPHILS 0.6 % (0-2); EOSINOPHILS 0.4 % (0-6); HEMATOCRIT 47.8 % (35.0-50.0); HEMOGLOBIN 15.7 g/dL (12.0-18.0); LYMPHOCYTES 27.7 % (24-44); MCH 29.4 (27-36); MCHC 32.9 g/dl (30-36); MCV 89.2 fl (81-99); MONOCYTES 6.1 % (0-12); NEUTROPHILS 65.2 % (39-80); PLATELET COUNT 287 K/uL (140-440); RBC 5.35 M/ul (4.3-5.7); RDW 13.4 (10.5-15.0)
[2023-02-11 16:03] LABS: ALBUMIN 4.7 g/dL (3.4-5.0); ALBUMIN/GLOBULIN RATIO 1.52 (1.1-2.4); ALCOHOL, MEDICAL <3 ng/dL (<3); ALKALINE PHOSPHATASE 93 U/L (46-116); ALT (SGPT) 62 U/L (14-59); ANION GAP 13.9 (7-21); AST (SGOT) 23 U/L (15-37); BILIRUBIN, TOTAL 0.2 ng/dL (0.2-1.0); BUN/CREATININE RATIO 13.26 (6.0-28.6); CALCIUM 8.5 mg/dL (8.5-10.1); CARBON DIOXIDE 26 mmol/L (21-32); CHLORIDE 104 mmol/L (98-107); CREATININE, SERUM 0.98 mg/dL (0.70-1.30); GLOMERULAR FILTRATION RATE,EST 109 mL/min (>60); POTASSIUM 3.9 mmol/L (3.5-5.1); PROTEIN, TOTAL 7.8 g/dL (6.4-8.2); UREA NITROGEN 13 mg/dL (7-18)
[2023-02-11 16:49] LABS: BILIRUBIN, URINE NEGATIVE (negative); BLOOD/HGB, URINE NEGATIVE (Negative); KETONE, URINE NEGATIVE (Negative); LEUK ESTERASE, URINE NEGATIVE (negative); NITRITE, URINE NEGATIVE (negative)
[2023-02-11 16:50] LABS: BASE EXCESS, BLOOD GAS -5.1 mmol/L (-2-2); HCO3, BLOOD GAS 24.4 mmol/L (22-26); O2 SATURATION, BLOOD GAS 99.1 % (95.0-100.0); PCO2, BLOOD GAS 63.3 mmHg (35-45); PH, BLOOD GAS 7.19 (7.35-7.45); PO2, BLOOD GAS 187 mmHg (80-100); TOTAL CO2, BLOOD GAS 26.3
[2023-02-11 16:59] LABS: RED BLOOD CELLS, URINE 0-1 /hpf (0-5); WHITE BLOOD CELLS, URINE 0-1 /HPF (0-5)
[2023-02-11 17:05] LABS: EPITHELIAL CELLS, URINE 0 /lpf (0-1+); REFLEX CULTURE, URINE No (No)
[2023-02-11 17:25] LABS: BARBITURATES, URINE NEGATIVE (NEGATIVE); BENZODIAZEPINE, URINE POSITIVE (NEGATIVE); BUPRENORPHINE, URINE NEGATIVE (NEGATIVE); CANNABINOID, URINE POSITIVE (NEGATIVE); COCAINE, URINE NEGATIVE (NEGATIVE); ECSTASY, URINE NEGATIVE (NEGATIVE); FENTANYL, URINE POSITIVE (NEGATIVE); METHADONE, URINE NEGATIVE (NEGATIVE); OPIATES, URINE NEGATIVE (NEGATIVE); OXYCODONE, URINE NEGATIVE (NEGATIVE); PHENCYCLIDINE, URINE NEGATIVE (NEGATIVE)
[2023-02-11 17:57] LABS: AMPHETAMINES, URINE NEGATIVE (NEGATIVE)
[2023-02-11 18:00] LABS: INFLUENZA B NAA NEGATIVE (NEGATIVE); RESPIRATORY SYNCYTIAL VIR NAA NEGATIVE (NEGATIVE)
[2023-02-11 18:36] LABS: BASE EXCESS, BLOOD GAS -0.1 mmol/L (-2-2); HCO3, BLOOD GAS 24.1 mmol/L (22-26); PH, BLOOD GAS 7.41 (7.35-7.45); PO2, BLOOD GAS 66 mmHg (80-100); TOTAL CO2, BLOOD GAS 25.2
[2023-02-11] MEDS ORDERED: PHENYTOIN SODI300 MG (19:14)
[2023-02-11 20:35] VITALS: BP 111/62
== END 2023-02-11 20:35 | disposition short-term general hospital (02) ==
LOC: ED 15:37
PROVIDERS: Emergency Medicine
DX: G40.901 Epilepsy, unspecified, not intractable, with status epilepticus (principal); E66.9 Obesity, unspecified; Z87.891 Personal history of nicotine dependence; Z11.52 Encounter for screening for COVID-19
CPT/HCPCS: 31500; 36415; 36600; 36680; 71045; 80053; 80185; 80307; 81001; 82803; 85025; 87502; 94640; 99285-25; C9803; G0480; J1953; J2250; J2704; J7030; Q2009; U0002

== ENCOUNTER 2023-11-03 07:36 | Emergency (ER) | payer OTHER ==
[~2023-11-03] VITALS: Ht 188 cm; Wt 153.0 kg
[~2023-11-03 07:36] MED LIST changes: +PHENYTOIN SODI300 MG
[2023-11-03] MEDS ORDERED: HYDROCHLOROTHIA25 MG PO (07:59)
[2023-11-03] MEDS ORDERED: OXCARBAZEPINE300 MG PO (07:59)
[2023-11-03] MEDS ORDERED: ZONISAMIDE100 MG PO (07:59)
[2023-11-03] MEDS ORDERED: CARVEDILOL6.25 MG PO (07:59)
[2023-11-03] MEDS ORDERED: AMLODIPINE BESY10 MG PO (07:59)
[2023-11-03] MEDS ORDERED: IBUPROFEN 600 MG TAB PO ONE (08:15)
[2023-11-03] MEDS ORDERED: ACETAMINOPHEN 500 MG TAB PO ONE (08:15)
[2023-11-03 08:20] LABS: BASOPHILS 5.1 % (0-2); EOSINOPHILS 1.5 % (0-6); HEMATOCRIT 47.5 % (35.0-50.0); HEMOGLOBIN 16.1 g/dL (12.0-18.0); LYMPHOCYTES 14.1 % (24-44); MCH 29.2 (27-36); MCHC 33.8 g/dl (30-36); MCV 86.3 fl (81-99); MONOCYTES 6.4 % (0-12); NEUTROPHILS 72.9 % (39-80); PLATELET COUNT 291 K/uL (140-440); RDW 13.1 (10.5-15.0)
[2023-11-03] MEDS ORDERED: ondansetron HCL 4 MG/2 ML VIAL IV ONE (08:30)
[2023-11-03 08:36] LABS: ALBUMIN 4.4 g/dL (3.4-5.0); ALBUMIN/GLOBULIN RATIO 1.42 (1.1-2.4); ANION GAP 14.2 (7-21); BILIRUBIN, TOTAL 0.6 ng/dL (0.2-1.0); BUN/CREATININE RATIO 13.76 (6.0-28.6); CALCIUM 9.2 mg/dL (8.5-10.1); CREATININE, SERUM 1.09 mg/dL (0.70-1.30); POTASSIUM 3.2 mmol/L (3.5-5.1); PROTEIN, TOTAL 7.5 g/dL (6.4-8.2)
[2023-11-03] MEDS ORDERED: SODIUM CHLORIDE 0.9% 1,000 ML IV ONE (09:15)
[2023-11-03 11:23] VITALS: BP 120/70
== END 2023-11-03 11:15 | disposition home or self-care (01) ==
LOC: ED 07:36
PROVIDERS: Emergency Medicine
DX: R56.9 Unspecified convulsions (principal); J45.909 Unspecified asthma, uncomplicated; Z79.899 Other long term (current) drug therapy; Z87.891 Personal history of nicotine dependence
CPT/HCPCS: 36415; 80053; 85025; 96361; 96374; 99284-25; A9270; J2405; J7030

== ENCOUNTER 2025-01-05 11:15 | Emergency (ER) | payer MEDICARE, OTHER ==
[~2025-01-05] VITALS: Ht 188 cm; Wt 148.5 kg
[~2025-01-05 11:15] MED LIST changes: +AMLODIPINE BESY10 MG PO; +CARVEDILOL6.25 MG PO; +HYDROCHLOROTHIA25 MG PO; +OXCARBAZEPINE300 MG PO; +ZONISAMIDE100 MG PO
[2025-01-05] MEDS ORDERED: OXYMETAZOLINE HCL 30 ML BTL ONE (11:39)
[2025-01-05] MEDS ORDERED: OXYMETAZOLINE HCL 30 ML BTL NAS ONE (11:45)
[2025-01-05 11:53] LABS: BASOPHILS 0.4 % (0.2-1.2); EOSINOPHILS 0.2 % (0.8-7.0); LYMPHOCYTES 21.3 % (21.8-53.1); MCH 29.3 PG (25.7-32.2); MCHC 33.6 g/dL (32.3-36.5); MCV 87.2 fL (79.0-92.2); MONOCYTES 10.9 % (5.3-12.2); NEUTROPHILS 66.8 % (34.0-67.9); RBC 4.61 M/uL (4.63-6.08)
[2025-01-05 11:57] LABS: GLOMERULAR FILTRATION RATE,EST 103.0 mL/min (>60); UREA NITROGEN 12.0 mg/dL (7-18)
[2025-01-05] MEDS ORDERED: TRANEXAMIC ACID 1,000 MG/10 ML AMP NAS ONE ×2 (12:00→12:45)
[2025-01-05] MEDS ORDERED: SODIUM CHLORIDE 0.9% 1,000 ML IV PRN ×2 (12:00→12:15)
[2025-01-05 12:21] LABS: ABO O; ANTIBODY SCREEN NEGATIVE; RH POSITIVE
[2025-01-05 14:54] VITALS: BP 185/113
== END 2025-01-05 15:24 | disposition short-term general hospital (02) ==
LOC: ED 11:15
PROVIDERS: Emergency Medicine
DX: R04.0 Epistaxis (principal); J45.909 Unspecified asthma, uncomplicated; Z79.899 Other long term (current) drug therapy; Z87.891 Personal history of nicotine dependence
CPT/HCPCS: 30903; 36415; 80048; 85025; 86850; 86900; 86901; 96374; 96376; 99284-25; J2405; J7030